=== PATIENT | male | born 1945 | race African-American/Black ===

== ENCOUNTER 2021-01-20 11:41 | Emergency (ER) | payer OTHER, MEDICAID ==
[~2021-01-20] VITALS: Ht 188 cm; Wt 108.9 kg
[2021-01-20 11:42] VITALS: BP 162/90
--- NOTE | 2021-01-20 12:11 | NUR ---
HARSHAA FROM [facility] WITH C/O CHEST PAIN RIGHT RIGHT SIDE OF CHEST THAT STARTED THIS MORNING WHEN GETTING DRESSED TRYING TO PUT HIS ARM THROUGH HIS SHIRT, PT STATES PAIN RADIATES TO BACK UNDER RIGHT SHOULDER, WORSE WITH DEEP INHALATION HX HTN, DM, [id number]
[2021-01-20] MEDS ORDERED: LIDOCAINE MPF 1% 10 MG/ML VIAL INJ ONE (12:25)
[2021-01-20 12:54] LABS: BASOPHILS % (AUTO) 0.4 % (0.0-2.0); EOSINOPHILS # (AUTO) 0.2 K/uL (0-0.4); EOSINOPHILS % (AUTO) 1.6 % (0.0-4.0); HEMATOCRIT 36.4 % (36-52); HEMOGLOBIN 11.6 g/dL (12.0-18.0); LYMPHOCYTES # (AUTO) 3.5 K/uL (2.0-11.5); MEAN CORPUSCULAR HEMOGLOBIN 29 pg (27-31); MEAN CORPUSCULAR HGB CONC 32 g/dL (33-37); MEAN CORPUSCULAR VOLUME 91.8 fL (80-94); MONOCYTES # (AUTO) 0.6 K/uL (0.8-1.0); MONOCYTES % (AUTO) 5.3 % (1.7-9.3); NEUTROPHILS # (AUTO) 6.6 K/uL (1.8-7.7); NEUTROPHILS % (AUTO) 60.7 % (42.2-75.2); PLATELET COUNT (AUTO) 167 K/uL (140-450); RED BLOOD CELL COUNT(AUTO) 3.97 MIL/uL (4.20-6.10); RED CELL DISTRIBUTION WIDTH 14.2 % (11.6-13.7); WHITE BLOOD COUNT (AUTO) 10.9 K/uL (4.8-10.8)
--- NOTE | 2021-01-20 13:00 | NUR ---
PATIENT RESTING BED, VSS, STATES PAIN HAS SUBSIDED AT THIS TIME
[2021-01-20 13:07] LABS: ALBUMIN 3.7 g/dL (3.4-5.0); ASPARTATE AMINOTRANSFERASE 26 U/L (15-37); CARBON DIOXIDE 30.8 mmol/L (21-32); CHLORIDE 102 mmol/L (98-107); CREATININE 1.5 mg/dL (0.6-1.3); GLUCOSE 196 mg/dL (74-106); POTASSIUM 3.8 mmol/L (3.5-5.1); SODIUM SERUM 138 mmol/L (136-145); TOTAL BILIRUBIN 0.5 mg/dL (0.0-1.0); UREA NITROGEN, BLOOD 24 mg/dL (7-18)
[2021-01-20] MEDS ORDERED: NAPR-1703 PO (13:40)
[2021-01-20 14:29] VITALS: BP 159/81
== END 2021-01-20 11:42 | disposition home or self-care (01) ==
LOC: MED 11:41
DX: M62.830 Muscle spasm of back (principal); R07.89 Other chest pain; I10 Essential (primary) hypertension; E11.9 Type 2 diabetes mellitus without complications; E78.5 Hyperlipidemia, unspecified; N28.9 Disorder of kidney and ureter, unspecified; E07.9 Disorder of thyroid, unspecified; Z90.49 Acquired absence of other specified parts of digestive tract; Z98.890 Other specified postprocedural states
CPT/HCPCS: 36415; 71045; 80053; 84484; 85025; 93005; 99285; J2001

== ENCOUNTER 2021-03-14 12:02 | Emergency (ER) | payer OTHER, MEDICAID ==
[~2021-03-14] VITALS: Ht 185.4 cm; Wt 108.9 kg
[~2021-03-14 12:02] MED LIST: NAPR-1703 PO
--- NOTE | 2021-03-14 12:02 | NUR ---
Patient MADELINE SIMPSON from [facility], transferred to bed 3. RN evaluating the patient at bedside.
--- NOTE | 2021-03-14 12:05 | NUR ---
75 y.o HARSHAA from [facility] c.o SOB. BLS. Q3days of SOB with cough. VSS. Pt awakens at night due to difficulty breathing, bilateral crackles but mostly prominent in the left side, productive cough. pt c.o C/P /10 pain that feels like pressure. PMH: hypertension, diabetes, gout Allergies: NKA
[2021-03-14 12:10] VITALS: BP 169/68
--- NOTE | 2021-03-14 12:23 | NUR ---
ERMD at bedside for examination
--- NOTE | 2021-03-14 12:32 | NUR ---
RN at bedside for EKG
--- NOTE | 2021-03-14 12:34 | NUR ---
RT at bedside for nebulizer treatment
--- NOTE | 2021-03-14 12:36 | NUR ---
Lab at bedside
[2021-03-14] MEDS: ALBUTEROL SULFATE/IPRATROPIU 3 ML SOL IH ONE (12:37)
[2021-03-14 12:50] LABS: BASOPHILS % (AUTO) 0.2 % (0.0-2.0); EOSINOPHILS # (AUTO) 0.1 K/uL (0-0.4); HEMATOCRIT 36.7 % (36-52); HEMOGLOBIN 11.8 g/dL (12.0-18.0); LYMPHOCYTES # (AUTO) 2.1 K/uL (2.0-11.5); LYMPHOCYTES % (AUTO) 18.5 % (20.5-51.1); MEAN CORPUSCULAR HEMOGLOBIN 29 pg (27-31); MEAN CORPUSCULAR HGB CONC 32 g/dL (33-37); MEAN CORPUSCULAR VOLUME 91.4 fL (80-94); MONOCYTES # (AUTO) 0.6 K/uL (0.8-1.0); MONOCYTES % (AUTO) 5.4 % (1.7-9.3); NEUTROPHILS # (AUTO) 8.7 K/uL (1.8-7.7); NEUTROPHILS % (AUTO) 74.9 % (42.2-75.2); PLATELET COUNT (AUTO) 193 K/uL (140-450); RED BLOOD CELL COUNT(AUTO) 4.02 MIL/uL (4.20-6.10); RED CELL DISTRIBUTION WIDTH 13.6 % (11.6-13.7); WHITE BLOOD COUNT (AUTO) 11.6 K/uL (4.8-10.8)
--- NOTE | 2021-03-14 12:52 | NUR ---
Xray at bedside
[2021-03-14 13:05] LABS: ALBUMIN 3.7 g/dL (3.4-5.0); ANION GAP 9.9 (8-16); ASPARTATE AMINOTRANSFERASE 29 U/L (15-37); CARBON DIOXIDE 31.9 mmol/L (21-32); CHLORIDE 100 mmol/L (98-107); CREATININE 1.6 mg/dL (0.6-1.3); GLUCOSE 159 mg/dL (74-106); POTASSIUM 3.8 mmol/L (3.5-5.1); SODIUM SERUM 138 mmol/L (136-145); TOTAL BILIRUBIN 0.7 mg/dL (0.0-1.0); UREA NITROGEN, BLOOD 24 mg/dL (7-18)
--- NOTE | 2021-03-14 13:22 | NUR ---
Patient appears to be resting comfortably in bed semi fowlers. Vital Signs within normal limits. Respirations even and unlabored. patient has no pain. no acute distress at this moment
[2021-03-14] MEDS ORDERED: ALBU0.0912 IH (13:32)
[2021-03-14] MEDS ORDERED: AZIT250T4 PO (13:32)
[2021-03-14] MEDS ORDERED: PRED20TA5 PO (13:32)
[2021-03-14] MEDS: predniSONE 20 MG TAB PO ONE (13:41)
[2021-03-14 13:54] VITALS: BP 167/69
--- NOTE | 2021-03-14 13:55 | NUR ---
Patient discharged with v/s stable. Written and verbal after care instructions given and explained. Patient alert, oriented and verbalized understanding of instructions. Ambulatory with steady gait. All questions addressed prior to discharge. ID band removed. Patient advised to follow up with PMD. Rx of albuterol sulfate, zithromax z pack, and deltasone given. Patient educated on indication of medication including possible reaction and side effects. Opportunity to ask questions provided and answered.
== END 2021-03-14 13:55 ==
LOC: MED 12:02
DX: J20.9 Acute bronchitis, unspecified (principal); E11.9 Type 2 diabetes mellitus without complications; I10 Essential (primary) hypertension; E07.9 Disorder of thyroid, unspecified; Z79.899 Other long term (current) drug therapy
CPT/HCPCS: 36415; 71045; 80053; 83690; 84484; 85025; 93005; 94640; 99285; J7512

== ENCOUNTER 2022-06-02 05:33 | Inpatient (IN) | payer OTHER, MEDICAID ==
[~2022-06-02] VITALS: Ht 185.4 cm; Wt 106.6 kg
[~2022-06-02 05:33] MED LIST changes: +ALBU0.0912 IH; +AZIT250T4 PO; +PRED20TA5 PO
--- NOTE | 2022-06-02 05:35 | NUR ---
MADELINE FROM [facility] WITH C/O GENERALIZED WEAKNESS. IS AWAKE AND ALERT, ORIENTED X 4.
--- NOTE | 2022-06-02 05:35 | NUR ---
PT MADELINE BLS. TAKEN TO BED 3
[2022-06-02 05:38] VITALS: BP 120/66
[2022-06-02] MEDS ORDERED: NACL 0.9% 1,000 ML IV ONE ×2 (06:10→07:45)
[2022-06-02 07:06] LABS: BASOPHILS % (AUTO) 0.4 % (0.0-2.0); EOSINOPHILS # (AUTO) 0.1 K/uL (0-0.4); HEMOGLOBIN 10.6 g/dL (12.0-18.0); LYMPHOCYTES # (AUTO) 3.6 K/uL (2.0-11.5); LYMPHOCYTES % (AUTO) 29.5 % (20.5-51.1); MEAN CORPUSCULAR HEMOGLOBIN 28 pg (27-31); MEAN CORPUSCULAR HGB CONC 32 g/dL (33-37); MEAN CORPUSCULAR VOLUME 88.9 fL (80-94); MONOCYTES # (AUTO) 0.5 K/uL (0.8-1.0); MONOCYTES % (AUTO) 4.4 % (1.7-9.3); NEUTROPHILS # (AUTO) 7.8 K/uL (1.8-7.7); NEUTROPHILS % (AUTO) 64.7 % (42.2-75.2); PLATELET COUNT (AUTO) 188 K/uL (140-450); RED BLOOD CELL COUNT(AUTO) 3.72 MIL/uL (4.20-6.10); RED CELL DISTRIBUTION WIDTH 13.8 % (11.6-13.7)
[2022-06-02 07:20] LABS: ALBUMIN 3.8 g/dL (3.4-5.0); ANION GAP 15.1 (8-16); ASPARTATE AMINOTRANSFERASE 26 U/L (15-37); CARBON DIOXIDE 23.8 mmol/L (21-32); CHLORIDE 98 mmol/L (98-107); CREATININE 4.2 mg/dL (0.6-1.3); GLUCOSE 115 mg/dL (74-106); POTASSIUM 4.9 mmol/L (3.5-5.1); SODIUM SERUM 132 mmol/L (136-145); TOTAL BILIRUBIN 0.6 mg/dL (0.0-1.0); UREA NITROGEN, BLOOD 91 mg/dL (7-18)
--- NOTE | 2022-06-02 07:20 | NUR ---
REPORT RECEIVED FROM MAUREEN ADAIR, TRANSFER OF CARE AT THIS TIME, RECEIVED PT AWAKE IN BED, ON BUSINESS INTELLIGENCE DEVELOPER, CONTINUES C/O OF GEN WEAK
--- NOTE | 2022-06-02 07:30 | NUR ---
PT HANDED URINAL
--- NOTE | 2022-06-02 07:32 | NUR ---
SWABS HANDED TO KELECHI DE JESUSGLASS ETCHER HELPER
--- NOTE | 2022-06-02 07:39 | NUR ---
DR ANN AT BEDSIDE FOR EVAL
[2022-06-02] MEDS ORDERED: OSELTAMIVIR PHOSPHATE 75 MG CAP PO ONE (08:35)
[2022-06-02] MEDS ORDERED: ALLO100T21 PO (08:47)
[2022-06-02] MEDS ORDERED: ASPI-1749 PO (08:48)
[2022-06-02] MEDS ORDERED: MEMA5TAB PO (08:48)
[2022-06-02] MEDS ORDERED: DOCU-2 PO (08:48)
[2022-06-02] MEDS ORDERED: INSU100S22 SUBQ (08:48)
[2022-06-02] MEDS ORDERED: GABA300C PO (08:48)
[2022-06-02] MEDS ORDERED: NITR0.4T2 SL (08:48)
[2022-06-02] MEDS ORDERED: SITA100T8 PO (08:48)
[2022-06-02] MEDS ORDERED: LANTUS SUBQ (08:48)
[2022-06-02] MEDS ORDERED: BENA1TAB PO (08:48)
[2022-06-02] MEDS ORDERED: SYN.05 PO (08:48)
[2022-06-02] MEDS ORDERED: SIMV40TA1 PO (08:51)
[2022-06-02] MEDS ORDERED: INSU100S45 SUBQ (08:51)
[2022-06-02] MEDS ORDERED: CHOL400C2 PO (08:51)
[2022-06-02] MEDS ORDERED: OMEP20EC11 PO (08:51)
--- NOTE | 2022-06-02 09:12 | NUR ---
unable to give urine sample at this time.
--- NOTE | 2022-06-02 09:13 | NUR ---
Patient will be admitted to care of [facility]. Admited to Telemetry. Will go to room 118A. Belongings list completed. Report to Navi.
[2022-06-02] MEDS ORDERED: ACETAMINOPHEN 325 MG TAB PO PRN (09:25)
[2022-06-02] MEDS: NACL 0.9% 1,000 ML IV SCH (09:25)
[2022-06-02] MEDS ORDERED: POTASSIUM CHLORIDE 10 MEQ TABER PO PRN (09:25)
[2022-06-02] MEDS ORDERED: DOCUSATE SODIUM 100 MG GELCAP PO PRN (09:25)
[2022-06-02] MEDS ORDERED: SODIUM PHOS / POTASSIUM PHOS 1 PKT PDR PO PRN (09:25)
[2022-06-02] MEDS ORDERED: HYDROcodone/APAP 5/325 MG 1 TAB TAB PO PRN (09:25)
[2022-06-02] MEDS ORDERED: ONDANSETRON 4 MG/2 ML VIAL IM/IVP PRN (09:25)
[2022-06-02] MEDS ORDERED: MORPHINE SULFATE 2 MG/ML SYR IVP PRN (09:25)
[2022-06-02] MEDS ORDERED: DEXTROSE 50% 50 ML SYR IVP PRN (09:25)
[2022-06-02 10:15] LABS: MAGNESIUM 1.6 mg/dL (1.8-2.4); PHOSPHORUS 5.6 mg/dL (2.5-4.9)
[2022-06-02 11:38] VITALS: BP 111/48
[2022-06-02] MEDS: BLOOD GLUCOSE MONITORING 1 DEV DEV FS SCH ×3 (12:07→21:20)
[2022-06-02] MEDS: MAGNESIUM OXIDE 400 MG TAB PO PRN (13:55)
[2022-06-02 14:17] LABS: APPEARANCE,URINE CLEAR (CLEAR); BILIRUBIN,URINE NEGATIVE (NEGATIVE); BLOOD, URINE NEGATIVE (NEGATIVE); COLOR,URINE YELLOW (YELLOW); LEUKOCYTE ESTERASE ,URINE NEGATIVE (NEGATIVE); NITRITE, URINE NEGATIVE (NEGATIVE); UGLUCOSE NEGATIVE (NEGATIVE)
--- NOTE | 2022-06-02 15:21 | NUR ---
PATIENT HAS BEEN SCREENED AND CATEGORIZED LOW NUTRITION RISK. PATIENT WILL BE SEEN WITHIN 7 DAYS OF ADMISSION. 06/08/[address] Addendum: 06/07/22 at [address] CORRECTION PATIENT HAS BEEN SCREENED AND CATEGORIZED MODERATE NUTRITION RISK. PATIENT WILL BE SEEN WITHIN 3-5 DAYS OF ADMISSION. CAM [address]
[2022-06-02 16:00] VITALS: BP 23/57
[2022-06-02] MEDS: INSULIN LISPRO SLIDING SCALE 100 UNITS/ML VIAL SUBQ PRN ×2 (16:48→21:32)
--- NOTE | 2022-06-02 18:14 | NUR ---
GOT ORDER TO GET BLADDER SCAN. THE SCAN SHOWED 485 URINE , WHEN ABOUT TO INSERT HERRERA CATHETER, PT REFUSED AND URINATED 400 CC IN URINAL, CALLED THE DR AND REPORTED, AND GOT ORDER TO SCAN HIM [id number]. [id number]
[2022-06-02 20:00] VITALS: BP 112/56
[2022-06-02] MEDS: allopurinoL 100 MG TAB PO SCH (21:21)
[2022-06-02] MEDS: GABAPENTIN 300 MG CAP PO SCH (21:21)
[2022-06-03] VITALS: BP 100/48
[2022-06-03 04:00] VITALS: BP 126/62
[2022-06-03] MEDS: LEVOTHYROXINE 0.05 MG TAB PO SCH (06:04)
[2022-06-03] MEDS: INSULIN LISPRO SLIDING SCALE 100 UNITS/ML VIAL SUBQ PRN ×4 (06:52→20:17)
[2022-06-03] MEDS: BLOOD GLUCOSE MONITORING 1 DEV DEV FS SCH ×4 (06:57→20:13)
--- NOTE | 2022-06-03 07:30 | NUR ---
RECEIVED REPORT FROM DIRECTOR EXPERIMENTAL MEDICINE RN. PT RESTING IN BED, NO C/O PAIN, NO SOB, WITH INTERMITTENT DRY COUGH
[2022-06-03 07:36] LABS: BASOPHILS % (AUTO) 0.3 % (0.0-2.0); EOSINOPHILS # (AUTO) 0.2 K/uL (0-0.4); EOSINOPHILS % (AUTO) 2.1 % (0.0-4.0); HEMATOCRIT 30.8 % (36-52); HEMOGLOBIN 10.1 g/dL (12.0-18.0); LYMPHOCYTES # (AUTO) 3.1 K/uL (2.0-11.5); LYMPHOCYTES % (AUTO) 33.5 % (20.5-51.1); MEAN CORPUSCULAR HEMOGLOBIN 29 pg (27-31); MEAN CORPUSCULAR HGB CONC 33 g/dL (33-37); MEAN CORPUSCULAR VOLUME 88.8 fL (80-94); MONOCYTES # (AUTO) 0.5 K/uL (0.8-1.0); MONOCYTES % (AUTO) 4.9 % (1.7-9.3); NEUTROPHILS # (AUTO) 5.5 K/uL (1.8-7.7); NEUTROPHILS % (AUTO) 59.2 % (42.2-75.2); PLATELET COUNT (AUTO) 166 K/uL (140-450); RED BLOOD CELL COUNT(AUTO) 3.47 MIL/uL (4.20-6.10); RED CELL DISTRIBUTION WIDTH 13.6 % (11.6-13.7); WHITE BLOOD COUNT (AUTO) 9.4 K/uL (4.8-10.8)
[2022-06-03 08:00] VITALS: BP 119/72
[2022-06-03 08:32] LABS: CHLORIDE 102 mmol/L (98-107); CREATININE 2.4 mg/dL (0.6-1.3); GLUCOSE 193 mg/dL (74-106); SODIUM SERUM 135 mmol/L (136-145)
[2022-06-03] MEDS: PANTOPRAZOLE 40 MG TABEC PO SCH (09:00)
[2022-06-03] MEDS: ASPIRIN 81 MG TAB.CHEW PO SCH (09:00)
[2022-06-03] MEDS: allopurinoL 100 MG TAB PO SCH ×2 (09:00→20:09)
[2022-06-03] MEDS: OSELTAMIVIR PHOSPHATE 30 MG CAP PO SCH (09:00)
[2022-06-03] MEDS: GABAPENTIN 300 MG CAP PO SCH ×2 (09:00→20:09)
[2022-06-03] MEDS: MEMANTINE 10 MG TAB PO SCH (09:00)
[2022-06-03 09:13] LABS: UREA NITROGEN, BLOOD 69 mg/dL (7-18)
--- NOTE | 2022-06-03 09:30 | NUR ---
DUE MEDS GIVEN
[2022-06-03 09:40] LABS: CHOL/HDL RATIO 3.3 (1-4.5)
[2022-06-03] MEDS ORDERED: MAG SULF 2000 MG/WATER PREMIX 50 ML IV SCH (10:00)
[2022-06-03] MEDS: NACL 0.9% 1,000 ML IV SCH (10:07)
[2022-06-03 12:00] VITALS: BP 123/65
[2022-06-03] MEDS: DOCUSATE SODIUM 100 MG GELCAP PO SCH ×2 (12:50→20:09)
--- NOTE | 2022-06-03 13:00 | NUR ---
PT RESTING IN BED, NO APPARENT DISTRESS
[2022-06-03 16:00] VITALS: BP 140/70
--- NOTE | 2022-06-03 19:15 | NUR ---
REPORT GIVEN BY AM RN. PATIENT IS AWAKE, ALERT AND ORIENTED X 4 [address]ING TV AT THIS TIME. DENIES PAIN AT THIS TIME. NO ACUTE RESPIRATORY DISTRESS NOTED. IVF OF NS AT 40 ML/HR INFUSING WELL ORDERED. SKIN WARM AND DRY TO TOUCH. BED IN THE LOWEST AND LOCKED POSITION FOR SAFETY, CALL LIGHT WITHIN REACH,.
[2022-06-03 20:00] VITALS: BP 123/64
--- NOTE | 2022-06-03 20:36 | NUR ---
BS-211 MG/DL, INSULIN GIVEN PER SLIDING SCALE COVERAGE ORDERED. HS SNACKS PROVIDED.
--- NOTE | 2022-06-03 23:45 | NUR ---
PER PATIENT HE HAD A SMALL FORMED STOOL.
[2022-06-04] VITALS: BP 121/60
--- NOTE | 2022-06-04 01:19 | NUR ---
PATIENT ASLEEP AT THIS TIME. BREATHING EVEN AND UNLABORED. CALL LIGHT WITHIN REACH,
[2022-06-04 04:00] VITALS: BP 120/70
[2022-06-04] MEDS: LEVOTHYROXINE 0.05 MG TAB PO SCH (05:43)
[2022-06-04] MEDS: BLOOD GLUCOSE MONITORING 1 DEV DEV FS SCH ×4 (06:30→20:23)
[2022-06-04] MEDS: INSULIN LISPRO SLIDING SCALE 100 UNITS/ML VIAL SUBQ PRN ×4 (06:31→20:35)
--- NOTE | 2022-06-04 07:30 | NUR ---
RECEIVED BEDSIDE REPORT FROM COVERING MACHINE TENDER NURSE, PT AWAKE ALERT ABLE TO LET NEEDS KNOWN. IV TO LEFT FA 20G, PATENT INTACT, INFUSING WELL, PT ON ROOM AIR, NO SOB NOTED, INITIAL ASSESSMENT DONE, ALL SAFETY PRECAUTION MET, CALL LIGHT WITHIN REACH, WILL CONTINUE TO MONITOR.
[2022-06-04 07:32] LABS: BASOPHILS % (AUTO) 0.3 % (0.0-2.0); EOSINOPHILS # (AUTO) 0.2 K/uL (0-0.4); EOSINOPHILS % (AUTO) 2.2 % (0.0-4.0); HEMATOCRIT 31.5 % (36-52); HEMOGLOBIN 10.3 g/dL (12.0-18.0); LYMPHOCYTES # (AUTO) 3.2 K/uL (2.0-11.5); LYMPHOCYTES % (AUTO) 35.5 % (20.5-51.1); MEAN CORPUSCULAR HEMOGLOBIN 29 pg (27-31); MEAN CORPUSCULAR HGB CONC 33 g/dL (33-37); MEAN CORPUSCULAR VOLUME 89.1 fL (80-94); MONOCYTES # (AUTO) 0.4 K/uL (0.8-1.0); MONOCYTES % (AUTO) 4.9 % (1.7-9.3); NEUTROPHILS # (AUTO) 5.2 K/uL (1.8-7.7); NEUTROPHILS % (AUTO) 57.1 % (42.2-75.2); PLATELET COUNT (AUTO) 165 K/uL (140-450); RED BLOOD CELL COUNT(AUTO) 3.54 MIL/uL (4.20-6.10); RED CELL DISTRIBUTION WIDTH 13.8 % (11.6-13.7); WHITE BLOOD COUNT (AUTO) 9.1 K/uL (4.8-10.8)
[2022-06-04 08:00] VITALS: BP 117/71
[2022-06-04] MEDS: ASPIRIN 81 MG TAB.CHEW PO SCH (09:02)
[2022-06-04] MEDS: GABAPENTIN 300 MG CAP PO SCH ×2 (09:02→20:31)
[2022-06-04] MEDS: PANTOPRAZOLE 40 MG TABEC PO SCH (09:02)
[2022-06-04] MEDS: MEMANTINE 10 MG TAB PO SCH (09:03)
[2022-06-04] MEDS: allopurinoL 100 MG TAB PO SCH ×2 (09:03→20:31)
[2022-06-04] MEDS: OSELTAMIVIR PHOSPHATE 30 MG CAP PO SCH (09:03)
[2022-06-04] MEDS: DOCUSATE SODIUM 100 MG GELCAP PO SCH ×2 (09:03→20:35)
[2022-06-04] MEDS: NACL 0.9% 1,000 ML IV SCH (09:25)
[2022-06-04] MEDS: NACL 0.9% 2,000 ML IV SCH (11:18)
[2022-06-04 15:03] LABS: CARBON DIOXIDE 25.2 mmol/L (21-32); CHLORIDE 102 mmol/L (98-107); CREATININE 1.9 mg/dL (0.6-1.3); GLUCOSE 187 mg/dL (74-106); POTASSIUM 5.2 mmol/L (3.5-5.1); SODIUM SERUM 136 mmol/L (136-145); UREA NITROGEN, BLOOD 52 mg/dL (7-18)
[2022-06-04 16:00] VITALS: BP 129/66
[2022-06-04 18:47] LABS: APPEARANCE,URINE CLEAR (CLEAR); BILIRUBIN,URINE NEGATIVE (NEGATIVE); BLOOD, URINE NEGATIVE (NEGATIVE); COLOR,URINE YELLOW (YELLOW); LEUKOCYTE ESTERASE ,URINE NEGATIVE (NEGATIVE); NITRITE, URINE NEGATIVE (NEGATIVE); UGLUCOSE TRACE (NEGATIVE)
[2022-06-04 18:54] LABS: RBC,URINE NONE SEEN /HPF (0-5); WBC,URINE NONE SEEN /HPF (0-5)
--- NOTE | 2022-06-04 19:30 | NUR ---
ENDORSED PT TO CARTON FORMING MACHINE OPERATOR NURSE FOR CONTINUOUS FO CARE
--- NOTE | 2022-06-04 19:35 | NUR ---
Received report from morning shift nurse. Patient resting on bed. Breathing even and unlabored, on room air. Patient is alert and oriented, independent and ambulatory. Bed locked at lowest with call light within reach. Advised patient to call for further needs.
[2022-06-04 20:00] VITALS: BP 122/64
[2022-06-04 20:59] LABS: TOTAL PROTEIN URINE 7.7 MG/DL
[2022-06-05] VITALS: BP 110/55
--- NOTE | 2022-06-05 | NUR ---
Patient resting on bed, awake and alert. No complaints of pain. Water refilled and placed at bedside. Advised to call for further needs.
[2022-06-05] MEDS: LEVOTHYROXINE 0.05 MG TAB PO SCH (05:54)
[2022-06-05] MEDS: NACL 0.9% 2,000 ML IV SCH (06:36)
[2022-06-05] MEDS: INSULIN LISPRO SLIDING SCALE 100 UNITS/ML VIAL SUBQ PRN ×4 (06:37→20:41)
[2022-06-05] MEDS: BLOOD GLUCOSE MONITORING 1 DEV DEV FS SCH ×4 (06:37→20:42)
--- NOTE | 2022-06-05 07:18 | NUR ---
Report given to morning shift nurseSherron. Patient awake and resting on bed , stable with no complaints of pain.
--- NOTE | 2022-06-05 07:20 | NUR ---
RECEIVED REPORT FROM BREAST WORKER NURSE FOR CONTINUITY OF CARE. PT IS AWAKE IN BED. A&O4, ABLE TO COMMUNICATE NEEDS. RESPIRATIONS EVEN AND UNLABORED ON RA. SKIN IS INTACT, WARM AND DRY TO TOUCH. IV SITE AT RFA G22, INFUSING NS AT 70ML/HR. DROPLET PRECAUTIONS IN PLACE FOR INFLUENZA. CALL LIGHT WITHIN REACH. SAFETY PRECAUTIONS IN PLACE. WILL CONTINUE TO MONITOR.
[2022-06-05 07:23] LABS: BASOPHILS % (AUTO) 0.3 % (0.0-2.0); EOSINOPHILS # (AUTO) 0.2 K/uL (0-0.4); EOSINOPHILS % (AUTO) 2.2 % (0.0-4.0); HEMOGLOBIN 9.9 g/dL (12.0-18.0); LYMPHOCYTES # (AUTO) 2.8 K/uL (2.0-11.5); LYMPHOCYTES % (AUTO) 31.8 % (20.5-51.1); MEAN CORPUSCULAR HEMOGLOBIN 30 pg (27-31); MEAN CORPUSCULAR HGB CONC 33 g/dL (33-37); MEAN CORPUSCULAR VOLUME 89.1 fL (80-94); MONOCYTES # (AUTO) 0.5 K/uL (0.8-1.0); MONOCYTES % (AUTO) 5.4 % (1.7-9.3); NEUTROPHILS # (AUTO) 5.4 K/uL (1.8-7.7); NEUTROPHILS % (AUTO) 60.3 % (42.2-75.2); PLATELET COUNT (AUTO) 162 K/uL (140-450); RED BLOOD CELL COUNT(AUTO) 3.36 MIL/uL (4.20-6.10); RED CELL DISTRIBUTION WIDTH 13.6 % (11.6-13.7); WHITE BLOOD COUNT (AUTO) 8.9 K/uL (4.8-10.8)
[2022-06-05 07:46] LABS: ANION GAP 14.9 (8-16); CARBON DIOXIDE 22.7 mmol/L (21-32); CHLORIDE 102 mmol/L (98-107); CREATININE 1.8 mg/dL (0.6-1.3); GLUCOSE 194 mg/dL (74-106); POTASSIUM 4.6 mmol/L (3.5-5.1); SODIUM SERUM 135 mmol/L (136-145); UREA NITROGEN, BLOOD 40 mg/dL (7-18)
[2022-06-05 08:00] VITALS: BP 144/80
--- NOTE | 2022-06-05 08:00 | NUR ---
Patient's Plan of Care was discussed and reviewed with ENVIRONMENTAL INSPECTOR: KATERINA ROBERTO
[2022-06-05] MEDS: GABAPENTIN 300 MG CAP PO SCH ×2 (09:37→20:35)
[2022-06-05] MEDS: allopurinoL 100 MG TAB PO SCH ×2 (09:38→20:35)
[2022-06-05] MEDS: MEMANTINE 10 MG TAB PO SCH (09:38)
[2022-06-05] MEDS: DOCUSATE SODIUM 100 MG GELCAP PO SCH ×2 (09:38→20:35)
[2022-06-05] MEDS: ASPIRIN 81 MG TAB.CHEW PO SCH (09:38)
[2022-06-05] MEDS: PANTOPRAZOLE 40 MG TABEC PO SCH (09:38)
[2022-06-05] MEDS: OSELTAMIVIR PHOSPHATE 30 MG CAP PO SCH (09:39)
--- NOTE | 2022-06-05 09:47 | NUR ---
ADMINISTERED SCHEDULED MORNING MEDS. PT TEACHING ABOUT MEDS GIVEN. PT VERBALIZED UNDERSTANDING. CALL LIGHT WITHIN REACH. SAFETY PRECAUTIONS IN PLACE. WILL CONTINUE TO MONITOR.
--- NOTE | 2022-06-05 11:15 | NUR ---
BLOOD GLUCOSE CHECK DONE. BS 329. SLIDING SCALE INSULIN ADMINISTERED.
[2022-06-05] MEDS: MAGNESIUM OXIDE 400 MG TAB PO PRN (13:51)
--- NOTE | 2022-06-05 13:57 | NUR ---
MG OX ADMINISTERED FOR MG 1.5.
[2022-06-05 16:00] VITALS: BP 126/74
--- NOTE | 2022-06-05 16:18 | NUR ---
BLOOD GLUCOSE CHECK DONE. BS 336. SLIDING SCALE INSULIN ADMINISTERED.
--- NOTE | 2022-06-05 19:25 | NUR ---
ENDORSED PT TO COW TRIMMER NURSE FOR CONTINUITY OF CARE. ALL NEEDS MET THROUGHOUT SHIFT. PT IS STABLE.
--- NOTE | 2022-06-05 19:30 | NUR ---
RECEIVED PT FROM AM NURSE FOR CONTINUITY OF CARE. PATIENT IS STABLE
[2022-06-05 20:00] VITALS: BP 144/65
[2022-06-05] MEDS: INSULIN LANTUS 100 UNITS/ML 10 ML VIAL SUBQ SCH (20:42)
--- NOTE | 2022-06-05 21:30 | NUR ---
AL SCHEDULED MEDICATIONS GIVEN,NO ADVERSE REACTIONS NOTED
--- NOTE | 2022-06-05 22:21 | NUR ---
06/05/2022 RD INITIAL ASSESSMENT COMPLETED PLEASE REFER TO NUTRITION ASSESSMENT UNDER CARE ACTIVITY FOR ESTIMATED NUTRITIONAL NEEDS. 1.CONTINUE WITH [facility] 60 GM DIET 2.MONITOR BLOOD GLUCOSE 3.RD TO FOLLOW-UP IN 3-5 DAYS PATIENT IS MODERATE RISK. LATA CARBONE, RD
--- NOTE | 2022-06-06 01:00 | NUR ---
PATIENT ASLEEP, RESPIRATIONS EVEN AND UNLABORED,NO DISTRESS NOTED
--- NOTE | 2022-06-06 03:00 | NUR ---
PATIENT ASLEEP,NO S/SX OF DISTRESS NOTED
--- NOTE | 2022-06-06 06:00 | NUR ---
PATIENT IS AWAKE,NO EPISODE OF LOOSE WATERY STOOL AT THIS TIME
[2022-06-06] MEDS: LEVOTHYROXINE 0.05 MG TAB PO SCH (06:23)
[2022-06-06] MEDS: BLOOD GLUCOSE MONITORING 1 DEV DEV FS SCH ×4 (07:07→20:54)
[2022-06-06 07:14] LABS: BASOPHILS % (AUTO) 0.3 % (0.0-2.0); EOSINOPHILS # (AUTO) 0.2 K/uL (0-0.4); EOSINOPHILS % (AUTO) 2.1 % (0.0-4.0); HEMATOCRIT 30.9 % (36-52); LYMPHOCYTES # (AUTO) 3.3 K/uL (2.0-11.5); LYMPHOCYTES % (AUTO) 33.4 % (20.5-51.1); MEAN CORPUSCULAR HEMOGLOBIN 29 pg (27-31); MEAN CORPUSCULAR HGB CONC 33 g/dL (33-37); MEAN CORPUSCULAR VOLUME 89.5 fL (80-94); MONOCYTES # (AUTO) 0.5 K/uL (0.8-1.0); MONOCYTES % (AUTO) 5.4 % (1.7-9.3); NEUTROPHILS # (AUTO) 5.8 K/uL (1.8-7.7); NEUTROPHILS % (AUTO) 58.8 % (42.2-75.2); PLATELET COUNT (AUTO) 162 K/uL (140-450); RED BLOOD CELL COUNT(AUTO) 3.46 MIL/uL (4.20-6.10); RED CELL DISTRIBUTION WIDTH 14.1 % (11.6-13.7); WHITE BLOOD COUNT (AUTO) 9.9 K/uL (4.8-10.8)
[2022-06-06 07:21] LABS: CARBON DIOXIDE 25.9 mmol/L (21-32); CHLORIDE 103 mmol/L (98-107); CREATININE 1.7 mg/dL (0.6-1.3); GLUCOSE 190 mg/dL (74-106); POTASSIUM 4.9 mmol/L (3.5-5.1); SODIUM SERUM 136 mmol/L (136-145); UREA NITROGEN, BLOOD 33 mg/dL (7-18)
[2022-06-06 07:23] LABS: PROTHROMBIN TIME 9.9 secs (10.8-13.4)
[2022-06-06 08:00] VITALS: BP 146/68
--- NOTE | 2022-06-06 08:05 | NUR ---
RECEIVED REPORT FROM NIGHTSHIFT NURSE LATA FOR CONTINUITY OF CARE. PT IN STABLE CONDITION, A/OX4, SOMEWHAT FORGETFUL. CURRENTLY SLEEPING, BUT EASILY AROUSED. PT IS BREATHING EVEN, REGULAR AND UNLABORED ON ROOM AIR. PT IS CONTINENT OF THE BOWEL AND BLADDER, AMBULATORY WITH CANE. PT DENIES PAIN AT THIS TIME, DROPLET PRECAUTIONS STILL IN EFFECT.
[2022-06-06] MEDS: ASPIRIN 81 MG TAB.CHEW PO SCH (08:44)
[2022-06-06] MEDS: DOCUSATE SODIUM 100 MG GELCAP PO SCH ×2 (09:29→20:38)
[2022-06-06] MEDS: MEMANTINE 10 MG TAB PO SCH (09:30)
[2022-06-06] MEDS: allopurinoL 100 MG TAB PO SCH ×2 (09:30→20:38)
[2022-06-06] MEDS: OSELTAMIVIR PHOSPHATE 30 MG CAP PO SCH (09:30)
[2022-06-06] MEDS: GABAPENTIN 300 MG CAP PO SCH ×2 (09:30→20:38)
[2022-06-06] MEDS: PANTOPRAZOLE 40 MG TABEC PO SCH (09:31)
[2022-06-06] MEDS: NACL 0.9% 2,000 ML IV SCH (10:30)
--- NOTE | 2022-06-06 13:35 | NUR ---
DC PLANNING: THE PATIENT PRESENTED FROM [facility] WITH C/O WEAKNESS AND DIARRHEA. H/O HTN, DM AND HYPOTHYROID DX. PATIENT REPORTS ANURIA X ONE DAY, CR. 4.2, NA= 132. CONSULTS WITH NEPHROLOGY ORDERED, LIVER MASS NOTED ON RENAL US. ORDERED RECEIVED FOR CM TO ARRANGE RENAL BX, CLINICALS AND ORDERS FAXED TO [facility]. CM SPOKE WITH PASTOR GALLARDO AT [facility] ([phone]), HER NURSING TEACHER WILL REVIEW THE CLINICALS. SAMI ASKED IF THE PROCEDURE WAS URGENT, PHONE NUMBER FOR THE ATTENDING MD GIVEN SO AN MD TO MD CALL CAN DETERMINE THIS. CM WILL FOLLOW. Addendum: 06/06/22 at 1534 by Leah Rodriguez CM DC PLANNING: [facility] AGREED TO PATIENT HAVING THE BIOPSY, CLINICAL PACKET AND ORDER FAXED TO JAH AT [facility]. AUTHORIZATION FOR HOSPITAL AND [facility] TRANSPORT FROM [facility] IS [id number]. [facility] DOESN'T HAVE A TECH TO DO PROCEDURE TODAY, WILL CALL CM TOMORROW TO SEE IF ADDITIONAL DOCUMENTATION OR FORMS ARE NEEDED AND TRY TO HAVE IT DONE THEN. ATTENDING MD NOTIFIED. CM WILL FOLLOW. Addendum: 06/07/22 at 0876 by Leah Rodriguez CM DC PLANNING: RAMÍREZ SPOKE WITH AUNG AT [facility], SENT COAG RESULTS. CASE REVIEWED BY DR GREENE, RADIOLOGY, HE IS RECOMMENDING A CT WITH CONTRAST. [facility] ALSO DOESN'T HAVE STAFFING TO DO PROCEDURE TODAY IT REQUIRES NURSING AND OUTPATIENT SURGERY TO BE INVOLVED. ATTENDING MD'S PHONE NUMBER GIVEN TO [facility] SO THE RADIOLOGIST CAN SPEAK WITH THE ATTENDING MD REGARDING RECOMMENDATIONS. RAMÍREZ WILL FOLLOW. Addendum: 06/07/22 at 1140 by Leah Rodriguez CM DC PLANNING: RAMÍREZ SPOKE WITH THE [facility] SUPERVISOR MILES WHO STATES THAT DANAE IS FOLLOWING UP ON REQUEST. RAMÍREZ LEFT VM ASKING FOR CLARIFICATION OF PROGRESS TOWARD GETTING PROCEDURE DONE AND ALSO TO AGAIN ASK THAT THE RADIOLOGIST CALL THE ATTENDING/ORDERING MD. RAMÍREZ WILL FOLLOW. Addendum: 06/07/22 at 1556 by Leah Rodriguez CM DC PLANNING: RAMÍREZ SPOKE WITH THE PATIENT AT BEDSIDE TO UPDATE HIM ON THE PROGRESS OF ARRANGEMENTS, PATIENT WAS YELLING BUT ULTIMATELY CALMED DOWN AND SPOKE WITH RAMÍREZ. DISCUSSED ACTIVITY LEVEL AT [facility], HE AMBULATES USING A CANE OR FWW AND CAN GO FAR THE PARKING LOT. HE STATES THAT HE TRIES TO GET UP AND OUT OF HIS ROOM DAILY TO WALK, PLAY POOL OR ENGAGE IN OTHER ACTIVITIES. THE PATIENT HAS BEEN AT [facility] FOR THREE YEARS AND WILL RETURN THERE WHEN HE'S DC'D FROM THE HOSPITAL. THE [facility] RADIOLOGIST SPOKE WITH DR ZAPATA, CT LIVER WITH CONTRAST ORDERED. RMAÍREZ SPOKE WITH MIKE AT [facility], SHE ASKED THAT CT RESULTS BE FAXED ONCE STUDY IS DONE, RAMÍREZ WILL SPEAK WITH HER IN THE MORNING TO CONFIRM BX SCHEDULE AND ARRANGE TRANSPORT. RAMÍREZ ALSO SPOKE WITH MANISH IN RADIOLOGY HERE, SHE WILL FOLLOW UP WITH NURSING REGARDING HIS IV ACCESS AND CONSENT, CM ENDORSED THAT CT RESULTS NEED TO BE FAXED TO [facility]. RAMÍREZ WILL FOLLOW. Addendum: 06/08/22 at 0835 by Leah Rodriguez CM DC PLANNING: RAMÍREZ SPOKE WITH THE CREDIT VERIFICATION CLERK OMAR AT [facility] REGARDING LIVER BX, AUTH NUMBER FROM INSURANCE GIVEN TO HIM. HE STATES THAT THE PERSON WHO SCHEDULES THE BX IS NOT IN UNTIL 0900 AND HE DOESN'T HAVE ANY INFORMATION OR UPDATES ON THE PROCEDURE. HE WILL CALL CM ONCE HE DOES, RAMÍREZ WILL FOLLOW. Addendum: 06/08/22 at 0925 by Leah Rodriguez CM DC PLANNING: PATIENT WILL BE PICKED UP AROUND 9:55 BY [facility] ([phone]) FOR TRANSPORT TO [facility], RETURN TRIP SET UP ON WILL CALL. PATIENTS NURSE GAYATRI DUNLAP, RAMÍREZ ALSO SPOKE WITH MIKE IN RADIOLOGY AT [facility] AND CREDIT VERIFICATION CLERK [facility]. RAMÍREZ WILL FOLLOW. Addendum: 06/08/22 at 1026 by Leah Rodriguez CM DC PLANNING: [facility] RUNNING LATE, WILL GIS ADMINISTRATOR PATIENT AROUND 10:45, CREDIT VERIFICATION CLERK OMAR AT [facility] MADE AWARE, HE WILL INFORM CT DEPT. PATIENTS NURSE UPDATED ON TIME, RAMÍREZ WILL FOLLOW. Addendum: 06/08/22 at 1201 by Leah Rodriguez CM DC PLANNING: ANOTHER CALL TO [facility], THEY STATED THEY WOULD GIS ADMINISTRATOR THE PATIENT AROUND NOON. RAMÍREZ THEN RECEIVED A CALL FROM KINA AT [facility], PROCEDURE IS CANCELLED, TENTATIVE RESCHEDULE TOMORROW AT 10:30 AM, KINA WILL CALL RAMÍREZ TO CONFIRM. RAMÍREZ THEN SPOKE WITH THE CREDIT VERIFICATION CLERK OMAR TO [facility] EARLY ARRIVAL AND STAFFING FOR OP SURGERY WHILE PATIENT WAITS FOR PROCEDURE, AGREED TO HAVE PATIENT ARRIVE AT 0800 AT OP SURGERY TO AVOID TRANSPORT DELAYS. RAMÍREZ INFORMED PATIENTS NURSE AND DR ZAPATA SO DIET CAN BE RESUMED, ALSO SPOKE WITH OP SURGERY AT [facility] TO ENDORSE PLAN. TRANSPORT WITH [facility] ARRANGED, GIS ADMINISTRATOR TIME [phone] TOMORROW, RETURN TRIP ON WILL CALL. RAMÍREZ WILL FOLLOW. Addendum: 06/10/22 at 1052 by Leah Rodriguez CM DC PLANNING: PATIENT IS S/P LIVER BX, PLAN TO DC TODAY PER ATTENDING MD. RAMÍREZ SPOKE WITH PATEL AT [facility] TO ENDORSE DC BACK TO FACILITY TODAY, SHE WILL SEND A VAN FOR GIS ADMINISTRATOR AT 1300. PATIENT'S NURSE AWARE OF PLAN. RAMÍREZ WILL FOLLOW. Addendum: 06/10/22 at 1201 by Leah Rodriguez CM DC PLANNING: RAMÍREZ SPOKE WITH PATIENT AT BEDSIDE TO ENDORSE DC BACK TO [facility] AND GIS ADMINISTRATOR TIME OF 1300. RAMÍREZ WILL FOLLOW.
--- NOTE | 2022-06-06 15:16 | NUR ---
PHYSICAL THERAPY CO-SIGN The Physical Therapy Progress Notes documented by Meteorology Professor have been reviewed. Reviewed/Co-Signed by: Niecy Bhatia Documentation Done by: VICKEY BULL PTA Addendum: 06/06/22 at 1516 by Niecy Bhatia PT Amended: Links added.
[2022-06-06 16:00] VITALS: BP 109/40
--- NOTE | 2022-06-06 19:11 | NUR ---
ENDORSED PT TO NIGHTSHIFT NURSE TRUDY. PT IN STABLE CONDITION.
--- NOTE | 2022-06-06 19:20 | NUR ---
RECEIVED BEDSIDE REPORT FROM DAY SHIFT RN FOR CONTINUITY OF CARE. PT IS AWAKE ON RA. PT HAS RIGHT FOREARM 22 GAUGE WITH NS 70 CC/HR. PT IS TO BE NPO MIDNIGHT. CALL LIGHT WITHIN REACH. ALL SAFETY MEASURES TAKEN. WILL CONTINUE TO MONITOR THE PT.
--- NOTE | 2022-06-06 19:50 | NUR ---
PT REFUSED VITAL SIGNS. STATED HE IS ALIVE.
--- NOTE | 2022-06-06 20:00 | NUR ---
COIN DEALER TOLD ME THE PT WANTED TO SPEAK TO THE PSYCHIATRIC ORDERLY. WENT TO CHECK IN ON PT. PT REFUSED TO SPEAK TO ANY RN OR CHARGE NURSE AND ONLY WANTS TO SPEAK TO PSYCHIATRIC ORDERLY. PT REFUSES TO SPEAK ABOUT HIS CONCERNS AND WILL ONLY SPEAK TO PSYCHIATRIC ORDERLY. PT WAS BECOMING AGITATED ON ASKING QUESTIONS. CALLED PSYCHIATRIC ORDERLY AND MADE AWARE. WILL CONTINUE TO MONITOR THE PT.
[2022-06-06] MEDS: INSULIN LISPRO SLIDING SCALE 100 UNITS/ML VIAL SUBQ PRN (20:51)
[2022-06-06] MEDS: INSULIN LANTUS 100 UNITS/ML 10 ML VIAL SUBQ SCH (20:52)
--- NOTE | 2022-06-07 02:01 | NUR ---
PT OBSERVED. PT IS SLEEPING COMFORTABLY IN BED WITHOUT ANY DISTRESS. VISIBLE CHEST RISE AND FALL. CALL LIGHT WITHIN REACH. ALL SAFETY MEASURES TAKEN. WILL CONTINUE TO MONITOR THE PT.
--- NOTE | 2022-06-07 04:55 | NUR ---
NEW IVF CHANGED. PT DENIES ANY PAIN AND HAS NO COMPLAINS AT THIS TIME. PT IS IN A CALMED MOOD. WILL CONTINUE TO MONITOR THE PT.
[2022-06-07] MEDS: NACL 0.9% 2,000 ML IV SCH (06:00)
[2022-06-07] MEDS: LEVOTHYROXINE 0.05 MG TAB PO SCH (06:09)
--- NOTE | 2022-06-07 06:21 | NUR ---
SCHEDULE MED GIVEN. NO ADVERSE REACTION NOTED. WILL CONTINUE TO MONITOR THE PT.
[2022-06-07] MEDS: BLOOD GLUCOSE MONITORING 1 DEV DEV FS SCH ×4 (06:37→21:38)
[2022-06-07 07:09] LABS: BASOPHILS % (AUTO) 0.3 % (0.0-2.0); EOSINOPHILS # (AUTO) 0.2 K/uL (0-0.4); EOSINOPHILS % (AUTO) 2.2 % (0.0-4.0); HEMATOCRIT 29.6 % (36-52); HEMOGLOBIN 9.6 g/dL (12.0-18.0); LYMPHOCYTES # (AUTO) 3.3 K/uL (2.0-11.5); LYMPHOCYTES % (AUTO) 32.4 % (20.5-51.1); MEAN CORPUSCULAR HEMOGLOBIN 29 pg (27-31); MEAN CORPUSCULAR HGB CONC 33 g/dL (33-37); MEAN CORPUSCULAR VOLUME 89.4 fL (80-94); MONOCYTES # (AUTO) 0.5 K/uL (0.8-1.0); MONOCYTES % (AUTO) 5.2 % (1.7-9.3); NEUTROPHILS # (AUTO) 6.1 K/uL (1.8-7.7); NEUTROPHILS % (AUTO) 59.9 % (42.2-75.2); PLATELET COUNT (AUTO) 156 K/uL (140-450); RED BLOOD CELL COUNT(AUTO) 3.31 MIL/uL (4.20-6.10); RED CELL DISTRIBUTION WIDTH 13.7 % (11.6-13.7); WHITE BLOOD COUNT (AUTO) 10.2 K/uL (4.8-10.8)
[2022-06-07 07:25] LABS: ANION GAP 11.2 (8-16); CARBON DIOXIDE 26.1 mmol/L (21-32); CHLORIDE 105 mmol/L (98-107); CREATININE 1.5 mg/dL (0.6-1.3); GLUCOSE 120 mg/dL (74-106); POTASSIUM 4.3 mmol/L (3.5-5.1); SODIUM SERUM 138 mmol/L (136-145); UREA NITROGEN, BLOOD 28 mg/dL (7-18)
--- NOTE | 2022-06-07 07:25 | NUR ---
ENDORSED PT TO DAY SHIFT RN FOR CONTINUITY OF CARE. PT IS STABLE.
--- NOTE | 2022-06-07 07:26 | NUR ---
RECEIVED REPORT FROM FASHION COORDINATOR NURSE FOR CONTINUITY OF CARE. PATIENT ASLEEP NO DISTRESS NOTED. PATIENT RESPIRATION EVEN AND NOT LABORED NO SHORTNESS OF BREATH ON ROOM AIR. IV SITE ON RIGHT FORE ARM TREVOR 22 RUNNING NS AT 70CC/HOUR. ALL SAFETY MEASURE IN PLACE.
--- NOTE | 2022-06-07 09:12 | NUR ---
DISCONNECT FROM IV, PATIENT AMBULATING BY PT ON STABLE CONDITION.
[2022-06-07] MEDS: ASPIRIN 81 MG TAB.CHEW PO SCH (09:34)
[2022-06-07] MEDS: MEMANTINE 10 MG TAB PO SCH (09:35)
[2022-06-07] MEDS: OSELTAMIVIR PHOSPHATE 30 MG CAP PO SCH (09:35)
[2022-06-07] MEDS: PANTOPRAZOLE 40 MG TABEC PO SCH (09:35)
[2022-06-07] MEDS: GABAPENTIN 300 MG CAP PO SCH ×2 (09:35→21:43)
[2022-06-07] MEDS: allopurinoL 100 MG TAB PO SCH ×2 (09:36→21:44)
[2022-06-07] MEDS: DOCUSATE SODIUM 100 MG GELCAP PO SCH ×2 (09:36→21:43)
--- NOTE | 2022-06-07 09:50 | NUR ---
Patient alert oriented given all due medication tolerated well.
[2022-06-07 10:00] VITALS: BP 139/71
--- NOTE | 2022-06-07 11:54 | NUR ---
SPOKE TO PAT GAS LEAK INSPECTOR HELPER REGARDING THE ARRANGEMENT FOR PROCEDURE NEED TO BE DONE AT [facility] AND SHE SAID THEY STILL WORKING ON IT. I CHECKED PATIENT BLOOD SUGAR NO COVERAGE FOR BLOOD SUGAR OF 120. I ALSO INFORM HIM OF WHAT THE GAS LEAK INSPECTOR HELPER MESSAGE.PATIENT VERBALIZED UNDERSTANDING.
--- NOTE | 2022-06-07 12:39 | NUR ---
PATIENT CALLED AND ASK TO SPEAK TO HAM MARKER ANTHONY MCKEON AND HE SPOKE TO HIM.
--- NOTE | 2022-06-07 13:00 | NUR ---
DIET CHANGE AND ORDERED FROM K[facility]. PAT EPIC APPLICATION COORDINATOR SPOKE TO HIM REGARDING THE PROCEDURE THAT NEED TO BE DONE.
--- NOTE | 2022-06-07 14:37 | NUR ---
PHYSICAL THERAPY CO-SIGN The Physical Therapy Progress Notes documented by Ocean Freight Forwarder have been reviewed. Reviewed/Co-Signed by: Niecy Bhatia Documentation Done by: VICKEY BULL PTA Addendum: 06/07/22 at 1437 by Niecy Bhatia PT Amended: Links added.
--- NOTE | 2022-06-07 14:58 | NUR ---
CT STAFF CALLED ME THAT WE NEED CONSENT FOR CT WITH CONTRAST AND AND IV LINE TREVOR 20 AND BIGGER. BUT WHEN I GO TO HIM AND EXPLAINED THE PROCEDURE AND TO GET CONSENT PATIENT GET MAD RIGHT AWAY AND SCREAMING AT ME THAT IT'S NOT GOING TO HAPPEN. I TRIED TO EXPLAINED TO HIM THE PROCEDURE AND CONSENT BUT PATIENT TOOK THE PAPER AND TEAR OFF AND THROW TO IT. I LEFT THE ROOM AND REPORT TO MY SUPERIOR.
[2022-06-07 16:00] VITALS: BP 120/69
--- NOTE | 2022-06-07 18:27 | NUR ---
DOCTOR CRESPO SEEN AND EVALUATED PATIENT. Addendum: 06/07/22 at 1828 by Jo Ann Grant LVN WRONG PATIENT
--- NOTE | 2022-06-07 18:28 | NUR ---
PATIENT WHEELED ON WHEELCHAIR BY HUB CUTTER. PATIENT ALERT ON STABLE CONDITION.
--- NOTE | 2022-06-07 19:05 | NUR ---
PATIENT BACK FROM CT ON STABLE CONDITION. HANG NEW IV FLUID AND CONNECT TO PATIENT. CALL LIGHT WITH IN EASY REACH.
--- NOTE | 2022-06-07 19:20 | NUR ---
RECEIVED ENDORSEMENT FROM DAY SHIFT NURSE FOR CONTINUITY OF PT CARE. PT IS AWAKE, ALERT AND VERBALLY RESPONSIVE. PT WILL BE ON NPO DUE TO ULTRA SOUND TOMORROW. RESPIRATION EVEN, NO SOB OR DISTRESS. SKIN INTACT AND DRY. SALINE LOCK LFA - 22 G AND LEFT AC 20 G. IV FLUID OF NORMAL SALINE INFUSING WELL AT 70 ML/HR.
[2022-06-07 20:00] VITALS: BP 114/81
[2022-06-07] MEDS: INSULIN LANTUS 100 UNITS/ML 10 ML VIAL SUBQ SCH (21:37)
[2022-06-07] MEDS: INSULIN LISPRO SLIDING SCALE 100 UNITS/ML VIAL SUBQ PRN (21:40)
--- NOTE | 2022-06-07 22:00 | NUR ---
PT IS ASLEEP. NO FACIAL GRIMACING. NO SOB OR DISTRESS. CALL LIGHT WITHIN THE REACH.
--- NOTE | 2022-06-08 02:00 | NUR ---
PT IS ASLEEP. NO SOB OR DISTRESS. CALL LIGHT WITHIN THE REACH.
[2022-06-08] MEDS: LEVOTHYROXINE 0.05 MG TAB PO SCH (06:30)
--- NOTE | 2022-06-08 06:30 | NUR ---
PT BLOOD SUGAR = 151 = 2 UNIT INSULIN HUMALOG SLIDING SCALE. PT REFUSED INSULIN HUMALOG.
[2022-06-08] MEDS: BLOOD GLUCOSE MONITORING 1 DEV DEV FS SCH ×4 (06:58→21:32)
[2022-06-08] MEDS: INSULIN LISPRO SLIDING SCALE 100 UNITS/ML VIAL SUBQ PRN ×3 (06:59→21:40)
--- NOTE | 2022-06-08 07:07 | NUR ---
PT IS ON STABLE CONDITION, ON BED. PT IS NPO. ENDORSED TO DAY SHIFT NURSE FOR CONTINUITY OF PT CARE. ALL SAFETY MEASURES IN PLACE.
--- NOTE | 2022-06-08 07:10 | NUR ---
RECEIVED REPORT FROM SCALP SPECIALIST NURSE FOR CONTINUITY OF CARE. PATIENT ASLEEP NO DISTRESS NOTED. RESPIRATION EVEN AND NOT LABORED NO SHORTNESS OF BREATH. ON ROOM AIR. IV SITE ON LEFT FORE ARM TREVOR 22 RUNNING NS AT 70 CC/HOUR. ALL SAFETY MEASURE IN PLACE.
[2022-06-08 08:00] VITALS: BP 126/70
--- NOTE | 2022-06-08 08:00 | NUR ---
Patient's Plan of Care was discussed and reviewed with DEPUTY REGISTER OF DEEDS: GAYATRI SMITH
[2022-06-08] MEDS: allopurinoL 100 MG TAB PO SCH ×2 (08:34→21:35)
[2022-06-08] MEDS: PANTOPRAZOLE 40 MG TABEC PO SCH (08:34)
[2022-06-08] MEDS: ASPIRIN 81 MG TAB.CHEW PO SCH (08:34)
[2022-06-08] MEDS: MEMANTINE 10 MG TAB PO SCH (08:35)
[2022-06-08] MEDS: GABAPENTIN 300 MG CAP PO SCH ×2 (08:35→21:34)
[2022-06-08] MEDS: DOCUSATE SODIUM 100 MG GELCAP PO SCH ×2 (08:35→21:33)
--- NOTE | 2022-06-08 08:46 | NUR ---
PATIENT ALERT NO DISTRESS NOTED GIVEN ALL HIS MEDICATION AND CONTINUE TO BE NPO FOR PROCEDURE. TALKING TO HIS DAUGHTER AT THIS TIME.
--- NOTE | 2022-06-08 10:13 | NUR ---
NURSE ELIANA FROM [facility] CALLED REGARDING THE PATIENT. GAVE REPORT FOR CONTINUITY OF CARE. AND INFORM CM THAT TRANSPORTATION IS NOT HERE YET SHE FOLLOWING IT UP.
[2022-06-08] MEDS: NACL 0.9% 2,000 ML IV SCH (10:15)
--- NOTE | 2022-06-08 11:47 | NUR ---
BLOOD SUGAR CHECKED NO COVERAGE FOR BLOOD SUGAR 133. INFORM PATIENT MESSAGE FROM CM THAT TRANSPORTATION WILL BE HERE AT [address]. [address] INFORM OF TRANSFORATION BEING LATE.
--- NOTE | 2022-06-08 12:00 | NUR ---
MIRA ELMORE CALLED AND INFORM ME THAT THE PATIENT PROCEDURE WILL NOT BE DONE TODAY AND IT WILL BE TOMORROW AT 10:30 AND WILL BE QUARANTINE OFFICER AT AM. I WENT TO PATIENT AND INFORM HIM OF THE CANCELATION. PATIENT WITH UNDERSTANDING. GIVEN SANDWICH JELLO AND PUDDING.
--- NOTE | 2022-06-08 14:00 | NUR ---
PATIENT ON BED RESTING WITH CALL LIGHT WITH IN EASY REACH.
[2022-06-08 14:19] LABS: BASOPHILS % (AUTO) 0.4 % (0.0-2.0); EOSINOPHILS # (AUTO) 0.2 K/uL (0-0.4); EOSINOPHILS % (AUTO) 2.2 % (0.0-4.0); HEMATOCRIT 29.4 % (36-52); HEMOGLOBIN 9.5 g/dL (12.0-18.0); LYMPHOCYTES # (AUTO) 2.6 K/uL (2.0-11.5); LYMPHOCYTES % (AUTO) 28.6 % (20.5-51.1); MEAN CORPUSCULAR HEMOGLOBIN 29 pg (27-31); MEAN CORPUSCULAR HGB CONC 32 g/dL (33-37); MEAN CORPUSCULAR VOLUME 89.7 fL (80-94); MONOCYTES # (AUTO) 0.4 K/uL (0.8-1.0); MONOCYTES % (AUTO) 4.5 % (1.7-9.3); NEUTROPHILS # (AUTO) 5.8 K/uL (1.8-7.7); NEUTROPHILS % (AUTO) 64.3 % (42.2-75.2); PLATELET COUNT (AUTO) 150 K/uL (140-450); RED BLOOD CELL COUNT(AUTO) 3.28 MIL/uL (4.20-6.10); RED CELL DISTRIBUTION WIDTH 14.1 % (11.6-13.7); WHITE BLOOD COUNT (AUTO) 9.1 K/uL (4.8-10.8)
[2022-06-08 14:26] LABS: ANION GAP 13.7 (8-16); CARBON DIOXIDE 23.9 mmol/L (21-32); CHLORIDE 103 mmol/L (98-107); CREATININE 1.7 mg/dL (0.6-1.3); GLUCOSE 248 mg/dL (74-106); POTASSIUM 4.6 mmol/L (3.5-5.1); SODIUM SERUM 136 mmol/L (136-145); UREA NITROGEN, BLOOD 25 mg/dL (7-18)
--- NOTE | 2022-06-08 14:45 | NUR ---
CALLED [facility] FOR PATIENT REQUEST FOR [facility]AM SANDWICH ON WHEAT BREAD, JELLO, PUDDING FOR DINNER.
[2022-06-08 16:00] VITALS: BP 162/78
--- NOTE | 2022-06-08 18:29 | NUR ---
SERVE PATIENT WITH DINNER THAT HE REQUESTING AND HE IS VERY SATISFY. REMINDED THAT HE WILL BE NPO AGAIN AFTER MIDNIGHT. CALL LIGHT WITH IN EASY REACH.
--- NOTE | 2022-06-08 19:26 | NUR ---
GAVE REPORT TO YARDAGE CONTROL CLERK NURSE FOR CONTINUITY OF CARE.
--- NOTE | 2022-06-08 19:26 | NUR ---
RECEIVED ENDORSEMENT FROM DAY SHIFT NURSE FOR CONTINUITY OF PT CARE. PT IS ON BED, AWAKE, ALERT AND VERBALLY RESPONSIVE. IV SALINE LOCK INTACT AND PATENT, IV FLUID OF NORMAL SALINE IS INFUSING WELL AT 70 ML/HR. NO REDNESS OR RASHES ON SKIN. RESPIRATORY EVEN, NO SOB OR DISTRESS NOTED.
--- NOTE | 2022-06-08 21:00 | NUR ---
PT BLOOD SUGAR = 304 = 2 UNITS OF HUMOLOG.
[2022-06-08] MEDS: INSULIN LANTUS 100 UNITS/ML 10 ML VIAL SUBQ SCH (21:37)
[2022-06-09] VITALS: BP 140/61
--- NOTE | 2022-06-09 | NUR ---
PT IS NPO AFTER MIDNIGHT FOR ULTRA SOUND AND BIOPSY PROCEDURE.
--- NOTE | 2022-06-09 01:00 | NUR ---
PT IS ON BED RELAX AND SLEEPING. NO SOB OR DISTRESS.
[2022-06-09] MEDS: LEVOTHYROXINE 0.05 MG TAB PO SCH (06:30)
[2022-06-09] MEDS: BLOOD GLUCOSE MONITORING 1 DEV DEV FS SCH ×4 (06:51→21:49)
--- NOTE | 2022-06-09 07:21 | NUR ---
PT IS ON STABLE CONDITION, AWAKE, ALERT AND VERBALLY RESPONSIVE. IV FLUID NS IS INFUSING WELL AT 70ML/HR. NO SOB OR DISTRESS. ALL SAFETY MEASURES IN PLACE. CALL LIGHT WITHIN THE REACH. ENDORSED TO DAY SHIFT NURSE FOR CONTINUITY OF PT CARE.
--- NOTE | 2022-06-09 07:22 | NUR ---
RECEIVED ENDORSEMENT FROM CLAY TEMPERER NURSE FOR CONTINUITY OF CARE. PATIENT AWAKE VERBALLY RESPONSIVE. NO DISTRESS NOTED. RESPIRATION EVEN AND NOT LABORED NO SHORTNESS OF BREATH. ON ROOM AIR . IV SITE ON LEFT AC TREVOR 20 SL AND LEFT FOREARM TREVOR 22 RUNNING 70 CC/HOUR OF NS. PATIENT NPO WAITING FOR TRANSPORTATION FOR PROCEDURE TO BE DONE AT [facility]. ALL SAFETY MEASURE IN PLACE. REPOSITION PATIENT.
[2022-06-09 07:28] LABS: BASOPHILS % (AUTO) 0.4 % (0.0-2.0); EOSINOPHILS # (AUTO) 0.2 K/uL (0-0.4); EOSINOPHILS % (AUTO) 2.2 % (0.0-4.0); HEMOGLOBIN 9.7 g/dL (12.0-18.0); LYMPHOCYTES # (AUTO) 3.6 K/uL (2.0-11.5); LYMPHOCYTES % (AUTO) 33.3 % (20.5-51.1); MEAN CORPUSCULAR HEMOGLOBIN 29 pg (27-31); MEAN CORPUSCULAR HGB CONC 32 g/dL (33-37); MEAN CORPUSCULAR VOLUME 89.7 fL (80-94); MONOCYTES # (AUTO) 0.5 K/uL (0.8-1.0); MONOCYTES % (AUTO) 4.7 % (1.7-9.3); NEUTROPHILS # (AUTO) 6.4 K/uL (1.8-7.7); NEUTROPHILS % (AUTO) 59.4 % (42.2-75.2); PLATELET COUNT (AUTO) 160 K/uL (140-450); RED BLOOD CELL COUNT(AUTO) 3.35 MIL/uL (4.20-6.10); RED CELL DISTRIBUTION WIDTH 14.5 % (11.6-13.7); WHITE BLOOD COUNT (AUTO) 10.8 K/uL (4.8-10.8)
[2022-06-09 07:33] LABS: ANION GAP 12.3 (8-16); CARBON DIOXIDE 26.1 mmol/L (21-32); CHLORIDE 103 mmol/L (98-107); CREATININE 1.4 mg/dL (0.6-1.3); GLUCOSE 105 mg/dL (74-106); POTASSIUM 4.4 mmol/L (3.5-5.1); SODIUM SERUM 137 mmol/L (136-145); UREA NITROGEN, BLOOD 23 mg/dL (7-18)
--- NOTE | 2022-06-09 07:38 | NUR ---
PATIENT ALERT AND ORIENTED ON STABLE CONDITION PROPERTY CLAIM REP BY [facility] TO GO TO [facility] FOR BIOPSY.
--- NOTE | 2022-06-09 07:44 | NUR ---
[facility] SPOKE TO JORDY AT ADMITTING GAVE REPORT FOR CONTINUITY OF CARE.
[2022-06-09] MEDS: ASPIRIN 81 MG TAB.CHEW PO SCH (09:00)
[2022-06-09] MEDS: PANTOPRAZOLE 40 MG TABEC PO SCH (09:00)
[2022-06-09] MEDS: allopurinoL 100 MG TAB PO SCH ×2 (09:00→21:45)
[2022-06-09] MEDS: GABAPENTIN 300 MG CAP PO SCH ×2 (09:00→21:44)
[2022-06-09] MEDS: DOCUSATE SODIUM 100 MG GELCAP PO SCH ×2 (09:00→21:44)
[2022-06-09] MEDS: MEMANTINE 10 MG TAB PO SCH (09:00)
--- NOTE | 2022-06-09 10:09 | NUR ---
PHYSICAL THERAPY NOTE NO TREATMENT RENDERED TODAY. PATIENT IS CURRENTLY IN [place] FOR BIOPSY PROCEDURE. WILL RESUME P.T. ON NEXT SCHEDULED DATE, IF MEDICALLY CLEARED.
[2022-06-09] MEDS: NACL 0.9% 2,000 ML IV SCH (10:15)
--- NOTE | 2022-06-09 14:28 | NUR ---
RECEIVED CALL FROM JORDY FROM [facility] FOR PATIENT CONTINUITY OF CARE EXPECTED TIME FOR PATIENT FOR BLOCK [facility]ANER IS 1500.
[2022-06-09 16:00] VITALS: BP 129/62
--- NOTE | 2022-06-09 16:00 | NUR ---
PATIENT CAME BACK FROM [facility] ON STABLE CONDITION. PATIENT WHEELED BY 2 [facility] DENIES PAIN OR ANY DISCOMFORT GIVEN ICE WATER AND CHOCOLATE PUDDING PER PATIENT REQUEST.
[2022-06-09] MEDS: INSULIN LISPRO SLIDING SCALE 100 UNITS/ML VIAL SUBQ PRN ×2 (16:21→21:47)
--- NOTE | 2022-06-09 19:18 | NUR ---
GAVE REPORT TO RN TRANSPORT NURSE FOR CONTINUITY OF CARE.
--- NOTE | 2022-06-09 19:35 | NUR ---
RECEIVED REPORT FROM AM NURSE FOR CONTINUITY OF CARE.PT IS STABLE
[2022-06-09 20:00] VITALS: BP 124/79
--- NOTE | 2022-06-09 21:30 | NUR ---
ALL MEDICATIONS GIVEN AT THIS TIME,NO ADVERSE REACTIONS NOTED
[2022-06-09] MEDS: INSULIN LANTUS 100 UNITS/ML 10 ML VIAL SUBQ SCH (21:47)
--- NOTE | 2022-06-10 02:00 | NUR ---
PATIENT ASLEEP,BREATHING EVEN AND UNLABORED,NO DISTRESS NOTED
[2022-06-10] MEDS: LEVOTHYROXINE 0.05 MG TAB PO SCH (06:20)
[2022-06-10] MEDS: BLOOD GLUCOSE MONITORING 1 DEV DEV FS SCH (06:44)
[2022-06-10] MEDS: ASPIRIN 81 MG TAB.CHEW PO SCH (08:46)
[2022-06-10] MEDS: MEMANTINE 10 MG TAB PO SCH (08:47)
[2022-06-10] MEDS: DOCUSATE SODIUM 100 MG GELCAP PO SCH (08:47)
[2022-06-10] MEDS: PANTOPRAZOLE 40 MG TABEC PO SCH (08:48)
[2022-06-10] MEDS: allopurinoL 100 MG TAB PO SCH (08:48)
[2022-06-10] MEDS: GABAPENTIN 300 MG CAP PO SCH (08:49)
[2022-06-10] MEDS: NACL 0.9% 2,000 ML IV SCH (10:08)
== END 2022-06-10 13:38 | DRG 871 ==
LOC: MED 05:33 → MTU 08:34
PROVIDERS: ADMIT Hospitalist; ATTEND Hospitalist
DX: A41.9 Sepsis, unspecified organism (principal); N17.0 Acute kidney failure with tubular necrosis; E87.1 Hypo-osmolality and hyponatremia; E03.9 Hypothyroidism, unspecified; F03.90 Unspecified dementia, unspecified severity, without behavioral disturbance, psychotic disturbance, mood disturbance, and anxiety; A05.9 Bacterial foodborne intoxication, unspecified; J10.1 Influenza due to other identified influenza virus with other respiratory manifestations; E83.42 Hypomagnesemia; M10.9 Gout, unspecified; E83.39 Other disorders of phosphorus metabolism; R16.0 Hepatomegaly, not elsewhere classified; N18.9 Chronic kidney disease, unspecified; Z20.822 Contact with and (suspected) exposure to COVID-19; I12.9 Hypertensive chronic kidney disease with stage 1 through stage 4 chronic kidney disease, or unspecified chronic kidney disease; E11.22 Type 2 diabetes mellitus with diabetic chronic kidney disease; E86.0 Dehydration; Z90.49 Acquired absence of other specified parts of digestive tract
CPT/HCPCS: 36415; 71045; 74018; 74160; 76770; 80048; 80053; 81001; 81003; 82105; 82378; 82550; 82948; 83036; 83605; 83735; 84100; 84156; 84300; 84484; 85025; 85610; 85730; 87040; 87081; 93005; 96360; 96361; 97112; 97116; 97163-GP; 97530; 99285; C1758; J1815; J3475; J7030; Q0092; Q9967

== ENCOUNTER 2023-01-08 06:19 | Inpatient (IN) | payer OTHER, MEDICAID ==
[~2023-01-08] VITALS: Ht 185.4 cm; Wt 103.4 kg
[2023-01-08 06:19] VITALS: BP 124/60
[~2023-01-08 06:19] MED LIST changes: +ALLO100T21 PO; +ASPI-1749 PO; -AZIT250T4 PO; +CHOL400C2 PO; +GABA300C PO; +INSU100S22 SUBQ; +INSU100S45 SUBQ; +LANTUS SUBQ; +MEMA5TAB PO; -NAPR-1703 PO; +NITR0.4T2 SL; +OMEP20EC11 PO; -PRED20TA5 PO; +SIMV-373 PO; +SITA100T8 PO; +SYN.05 PO
--- NOTE | 2023-01-08 06:19 | NUR ---
MADELINE FROM [facility] WITH C/O DIARRHEA SINCE MONDAY
--- NOTE | 2023-01-08 06:23 | NUR ---
Dr. Vazquez examining patient.
[2023-01-08] MEDS ORDERED: NACL 0.9% 1,000 ML IV ONE ×2 (06:30→11:45)
--- NOTE | 2023-01-08 06:30 | NUR ---
PT MADELINE BLS. TAKEN TO BED 7
--- NOTE | 2023-01-08 06:35 | NUR ---
Laurel richter in [facility] - 01/08/23 at 0635 by ALETHEA X-Ray at bedside.
--- NOTE | 2023-01-08 06:54 | NUR ---
X-Ray at bedside.
--- NOTE | 2023-01-08 07:22 | NUR ---
REPORT RECIEVED FROM SIN[facility] REYES FOR TRANSFER OF CARE.
[2023-01-08 07:44] LABS: BASOPHILS % (AUTO) 0.2 % (0.0-2.0); EOSINOPHILS # (AUTO) 0.1 K/uL (0-0.4); EOSINOPHILS % (AUTO) 0.9 % (0.0-4.0); HEMATOCRIT 28.7 % (36-52); HEMOGLOBIN 9.4 g/dL (12.0-18.0); LYMPHOCYTES # (AUTO) 2.6 K/uL (2.0-11.5); LYMPHOCYTES % (AUTO) 25.5 % (20.5-51.1); MEAN CORPUSCULAR HEMOGLOBIN 29 pg (27-31); MEAN CORPUSCULAR HGB CONC 33 g/dL (33-37); MEAN CORPUSCULAR VOLUME 89.7 fL (80-94); MONOCYTES # (AUTO) 0.6 K/uL (0.8-1.0); NEUTROPHILS # (AUTO) 6.9 K/uL (1.8-7.7); NEUTROPHILS % (AUTO) 67.4 % (42.2-75.2); PLATELET COUNT (AUTO) 158 K/uL (140-450); RED BLOOD CELL COUNT(AUTO) 3.21 MIL/uL (4.20-6.10); RED CELL DISTRIBUTION WIDTH 15.1 % (11.6-13.7); WHITE BLOOD COUNT (AUTO) 10.3 K/uL (4.8-10.8)
[2023-01-08 08:16] LABS: ALBUMIN 3.4 g/dL (3.4-5.0); ANION GAP 17.2 (8-16); ASPARTATE AMINOTRANSFERASE 44 U/L (15-37); CARBON DIOXIDE 19.5 mmol/L (21-32); CHLORIDE 103 mmol/L (98-107); GLUCOSE 163 mg/dL (74-106); POTASSIUM 4.7 mmol/L (3.5-5.1); SODIUM SERUM 135 mmol/L (136-145); TOTAL BILIRUBIN 0.4 mg/dL (0.0-1.0)
[2023-01-08 08:18] LABS: CREATININE 4.5 mg/dL (0.6-1.3); UREA NITROGEN, BLOOD 70 mg/dL (7-18)
--- NOTE | 2023-01-08 10:08 | NUR ---
Patient had a bowel movement. Patient was made clean and dry.
[2023-01-08] MEDS ORDERED: LOPERAMIDE 2 MG CAP PO PRN (11:45)
--- NOTE | 2023-01-08 12:45 | NUR ---
Called [facility] to ask for an updated med list. Awaiting fax
--- NOTE | 2023-01-08 13:20 | NUR ---
Patient was noted with loose stool. Fresh diaper was provided. Patient was made clean and dry.
--- NOTE | 2023-01-08 14:05 | NUR ---
Called [facility], spoke to Angie in regards to updated med list. States she already sent fax. Requested to refax med list.
[2023-01-08] MEDS ORDERED: MEMA5TAB41 PO (14:50)
[2023-01-08] MEDS ORDERED: SITA50TA3 PO (14:50)
[2023-01-08] MEDS ORDERED: DOXA2TAB1 PO (14:50)
[2023-01-08] MEDS ORDERED: BENA1TAB PO (14:50)
[2023-01-08] MEDS ORDERED: AMLO10TA89 PO (14:50)
[2023-01-08] MEDS ORDERED: INSU100V17 SQ (14:50)
[2023-01-08] MEDS ORDERED: ASCO500W4 PO (14:50)
--- NOTE | 2023-01-08 14:50 | NUR ---
Faxed recieved, med dax complete.
--- NOTE | 2023-01-08 15:40 | NUR ---
Patient had loose BM. Patient was made clean and dry. Fresh diaper applied.
--- NOTE | 2023-01-08 15:53 | NUR ---
PATIENT HAS BEEN SCREENED AND CATEGORIZED MODERATE NUTRITION RISK. PATIENT WILL BE SEEN WITHIN 3-5 DAYS OF ADMISSION. REVIEWED BY YEN HANKINS RD
[2023-01-08] MEDS ORDERED: AZITHROMYCIN 500 MG in DEXTROSE 5% 250 ML IV SCH (17:00)
--- NOTE | 2023-01-08 17:20 | NUR ---
Patient was offered dinner tray.
[2023-01-08 17:26] LABS: ANION GAP 14.1 (8-16); CARBON DIOXIDE 21.2 mmol/L (21-32); CHLORIDE 105 mmol/L (98-107); CREATININE 3.6 mg/dL (0.6-1.3); GLUCOSE 110 mg/dL (74-106); POTASSIUM 4.3 mmol/L (3.5-5.1); SODIUM SERUM 136 mmol/L (136-145)
[2023-01-08 17:28] LABS: UREA NITROGEN, BLOOD 72 mg/dL (7-18)
--- NOTE | 2023-01-08 17:51 | NUR ---
Attempted to perform urinary oro. Patient refused. Dr. Alejo was paged for notification of refusal.
[2023-01-08] MEDS ORDERED: SODIUM BICARBONATE 8.4% PFS 50 MEQ/50 ML SYR IVP ONE (18:49)
[2023-01-08] MEDS ORDERED: cefTRIAXone 1,000 MG VIAL ONE (19:06)
[2023-01-08 19:13] LABS: APPEARANCE,URINE CLEAR (CLEAR); BILIRUBIN,URINE NEGATIVE (NEGATIVE); BLOOD, URINE NEGATIVE (NEGATIVE); COLOR,URINE YELLOW (YELLOW); LEUKOCYTE ESTERASE ,URINE NEGATIVE (NEGATIVE); NITRITE, URINE NEGATIVE (NEGATIVE); PH,URINE 5.5 (5.0-9.0); UGLUCOSE NEGATIVE (NEGATIVE)
[2023-01-08] MEDS: SODIUM BICARBONATE 8.4% 50 MEQ in NACL 0.45% 1,000 ML IV SCH (19:20)
--- NOTE | 2023-01-08 19:26 | NUR ---
Ultrasound at bedside.
[2023-01-08] MEDS ORDERED: AZITHROMYCIN 500 MG INJ VIAL IV ONE (19:28)
--- NOTE | 2023-01-08 19:55 | NUR ---
Report given to GIOVANY Travis for transfer of care.
--- NOTE | 2023-01-08 20:45 | NUR ---
REPORT GIVEN TO ROSITA ADAIR
[2023-01-08 21:18] VITALS: BP 124/73
--- NOTE | 2023-01-08 21:18 | NUR ---
RECEIVED PT FROM ER/ ROZ AAOX4 , NID , O2 SAT WNL , W/ ONGOING 1LPM/NC , ADMISSION ASSESSMENT- WILL BE DONE , PT CAN'T WALK BUT CAN MOVE BY HIMSELF - WILL PUT ON FALL PREVENTION PROTOCOL , R/O C DIFF , BUT NO BM SINCE THIS AM , ON CONTACT PREC. FOR THE MEANTIME . WILL CONT. TO MONITOR . CALL LIGHT / URINAL WITHIN REACH , ON TELE ROULA - TOR - SR .
--- NOTE | 2023-01-08 21:20 | NUR ---
BP RE CHECK - BP164/101 , MS 102 , O2 SAT 98 % , NO S/SX OF S2 NOTED AST THIS TIME , WILL MEDICATE - FOR CLOSELY WATCH . ON S2 PREC. , BED ALARM ON , WILL CONT. TO MONITOR Addendum: 01/08/23 at 2130 by Anabel Hanna RN AT 2123 APRESOLINE 0.5 ML / SLOWLY IV PUSH GIVEN ORDERED , ON TELE MONITOR Addendum: 01/08/23 at 2133 by Anabel Hanna RN AT 2132 -FULLY AWAKE .
[2023-01-08] MEDS ORDERED: INSULIN LISPRO SLIDING SCALE 100 UNITS/ML VIAL SUBQ PRN (21:55)
--- NOTE | 2023-01-09 00:10 | NUR ---
SLEEPING , EASILY AROUSABLE BUT EASILY TO FALL BACK SLEEP , PT HAS HX OF DM , W/ ON GOING NSS W/ SODIUM BICARB AT 125 CC/HR . CALL LIGHT / URINAL WITHIN REACH . BS CHECK 125 . NO D50/.50 TIV STANDBY - DR. GARCIA INFORM Addendum: 01/09/23 at 0012 by Anabel Hanna RN PT IS CCHO DIET BUT REFUSED TO EAT , HESAID HE WANTS TO GO SLEEP
--- NOTE | 2023-01-09 01:05 | NUR ---
DOCTOR'S ORDERS REVIEWED - THERE IS DOCTOR'S ORDER FOR [facility]A CATH - BUT PER ER NURSE ( GIOVANY RAI ) THE AM NURSE ENDORSD TO HER SHE SAID THE PT IS REFUSED THAT'S WHY PT SENT HERE IN THE FLOOR W/O HERRERA CATH - DOYLE RIOS Addendum: 01/09/23 at 0113 by Anabel Hanna RN THE WORD DOYLE RIOS IN THE ABOVE NURSE'S NOTE IS AN ERROR ENTRY , INSTEAD OF WILL ENDORSE - ISAEL
[2023-01-09] MEDS ORDERED: SODIUM BICARBONATE 8.4% PFS 50 MEQ/50 ML SYR IVP ONE (03:35)
[2023-01-09] MEDS ORDERED: SODIUM BICARBONATE 8.4% 50 MEQ/50 ML VIAL ONE (03:37)
[2023-01-09 04:00] VITALS: BP 122/70
[2023-01-09] MEDS: SODIUM BICARBONATE 8.4% 50 MEQ in NACL 0.45% 1,000 ML IV SCH ×3 (04:13→17:47)
[2023-01-09 05:15] LABS: APPEARANCE,URINE CLEAR (CLEAR); BILIRUBIN,URINE NEGATIVE (NEGATIVE); BLOOD, URINE NEGATIVE (NEGATIVE); COLOR,URINE YELLOW (YELLOW); LEUKOCYTE ESTERASE ,URINE NEGATIVE (NEGATIVE); NITRITE, URINE NEGATIVE (NEGATIVE); UGLUCOSE NEGATIVE (NEGATIVE)
[2023-01-09 06:28] LABS: BASOPHILS % (AUTO) 0.2 % (0.0-2.0); EOSINOPHILS # (AUTO) 0.2 K/uL (0-0.4); EOSINOPHILS % (AUTO) 2.5 % (0.0-4.0); HEMATOCRIT 28.6 % (36-52); HEMOGLOBIN 9.3 g/dL (12.0-18.0); LYMPHOCYTES # (AUTO) 2.7 K/uL (2.0-11.5); LYMPHOCYTES % (AUTO) 34.5 % (20.5-51.1); MEAN CORPUSCULAR HEMOGLOBIN 29 pg (27-31); MEAN CORPUSCULAR HGB CONC 32 g/dL (33-37); MEAN CORPUSCULAR VOLUME 90.7 fL (80-94); MONOCYTES # (AUTO) 0.6 K/uL (0.8-1.0); MONOCYTES % (AUTO) 8.1 % (1.7-9.3); NEUTROPHILS # (AUTO) 4.4 K/uL (1.8-7.7); NEUTROPHILS % (AUTO) 54.7 % (42.2-75.2); PLATELET COUNT (AUTO) 154 K/uL (140-450); RED BLOOD CELL COUNT(AUTO) 3.16 MIL/uL (4.20-6.10); RED CELL DISTRIBUTION WIDTH 14.8 % (11.6-13.7)
[2023-01-09] MEDS: LEVOTHYROXINE 0.05 MG TAB PO SCH (06:36)
--- NOTE | 2023-01-09 06:36 | NUR ---
BS 88 - PROVIDE SNACK . NO COMPLAINT MADE , CALL LIGHT WITHIN REACH
[2023-01-09 06:52] LABS: ALBUMIN 3.6 g/dL (3.4-5.0); ANION GAP 13.1 (8-16); ASPARTATE AMINOTRANSFERASE 47 U/L (15-37); CHLORIDE 105 mmol/L (98-107); CREATININE 2.9 mg/dL (0.6-1.3); GLUCOSE 91 mg/dL (74-106); POTASSIUM 4.1 mmol/L (3.5-5.1); SODIUM SERUM 137 mmol/L (136-145); TOTAL BILIRUBIN 0.6 mg/dL (0.0-1.0)
[2023-01-09 07:01] LABS: UREA NITROGEN, BLOOD 65 mg/dL (7-18)
--- NOTE | 2023-01-09 07:10 | NUR ---
RELAYED TO DR. PALMER THE LATEST BUN 65 - WILL ENDORSE TO GIOVANY YOUNG TO FF UP IF THERE IS FURTHER ORDERS FROM DR. PALMER . ENDORSED TO HECTOR THE LATEST BS OF PT IS 88 - I SENT MSG TO DR. RADHA QUIROGA NO BS MONITORING ORDER AND NO STANDBY D - I ENDORSED TO GIOVANY YOUNG TO FF UP THIS MATTER TO , HECTOR ADAIR VERBALIZES UNDERSTANDING . PT IS AAOX4 AT THIS TIME . Addendum: 01/09/23 at 0748 by Anabel Hanna RN REFUSED HERRERA CATH INSERTION DR. PALMER INFORMED
--- NOTE | 2023-01-09 07:16 | NUR ---
receive the patient from night auditor rn in rm 114 aox4 admitting diagnosis of acute kidney injury . will continue to monitor
[2023-01-09] MEDS: amLODIPine 5 MG TAB PO SCH (08:50)
[2023-01-09] MEDS: allopurinoL 100 MG TAB PO SCH ×2 (08:50→20:43)
[2023-01-09] MEDS: MEMANTINE 10 MG TAB PO SCH ×2 (08:51→20:43)
[2023-01-09] MEDS: DOXAZOSIN 2 MG TAB PO SCH (08:51)
--- NOTE | 2023-01-09 11:30 | NUR ---
DC PLANNING ASSESSMENT COMPLETE PLEASE REFER TO ASSESSMENT FOR DETAILS TENTATIVE DC PLAN IS FOR PT TO RETURN TO MR, WHEN MEDICALLY STABLE. Addendum: 01/10/23 at 0909 by Darrius POLANCO Amended: Links added.
[2023-01-09 16:00] VITALS: BP 124/69
--- NOTE | 2023-01-09 18:25 | NUR ---
will endorse to slot shift manager rn for computed tomography of the abdomen
--- NOTE | 2023-01-09 19:54 | NUR ---
PATIENT AAOX4 WELL RESTED IN BED. NO SOB NOTED ON ROOM AIR. NO COMPLAINTS OF PAIN AT THIS TIME. IVF I/2 NS WITH SODIUM BICARBONATE 50 MEQ 125 ML/HR INFUSING WELL. CALL LIGHT WITHIN REACH. SAFETY MEASURES IN PLACE. PATIENT IS AMBULATORY.
[2023-01-09 20:00] VITALS: BP 151/83
[2023-01-09] MEDS: metroNIDAZOLE 500 MG/NS PREMIX 100 ML IV SCH (20:42)
--- NOTE | 2023-01-09 20:42 | NUR ---
ALL SCHEDULED MEDICATIONS DUE ADMINISTERED.
[2023-01-09] MEDS ORDERED: SIMVASTATIN 40 MG TAB PO SCH (21:00)
[2023-01-10] VITALS: BP 129/58
[2023-01-10] MEDS: SODIUM BICARBONATE 8.4% 50 MEQ in NACL 0.45% 1,000 ML IV SCH ×2 (03:02→08:34)
[2023-01-10 04:00] VITALS: BP 122/49
[2023-01-10] MEDS: metroNIDAZOLE 500 MG/NS PREMIX 100 ML IV SCH ×2 (05:50→11:54)
[2023-01-10] MEDS: LEVOTHYROXINE 0.05 MG TAB PO SCH (05:50)
--- NOTE | 2023-01-10 06:35 | NUR ---
PATIENT REFUSED BLOOD SUGAR CHECK.
--- NOTE | 2023-01-10 07:04 | NUR ---
receive the patient from the rn shift mgr rn in rm 114 aox4 admitting diagnosis of acute kidney injury due to diarrhea. will continue to monitor
--- NOTE | 2023-01-10 07:29 | NUR ---
GAVE REPORT TO AM NURSE FOR CONTINUITY OF CARE. PATIENT REFUSED BLOOD DRAW AT 0530.
[2023-01-10] MEDS: MEMANTINE 10 MG TAB PO SCH (08:32)
[2023-01-10] MEDS: allopurinoL 100 MG TAB PO SCH (08:32)
[2023-01-10] MEDS: DOXAZOSIN 2 MG TAB PO SCH (08:32)
[2023-01-10] MEDS: amLODIPine 5 MG TAB PO SCH (08:33)
[2023-01-10] MEDS ORDERED: LACT1CAP81 PO (10:28)
[2023-01-10] MEDS ORDERED: METR-520 PO (10:28)
--- NOTE | 2023-01-10 16:00 | NUR ---
discharge the patient [facility] . no comolain of pain at this time . no sign and symptoms of respiratory distress . in a stable condition . brought to the lobby to a waiting uber
== END 2023-01-10 15:25 | disposition home or self-care (01) | DRG 177 ==
LOC: MED 06:19 → MTU 11:50
PROVIDERS: ADMIT Family Medicine; ATTEND Family Medicine
DX: J69.0 Pneumonitis due to inhalation of food and vomit (principal); N17.0 Acute kidney failure with tubular necrosis; A08.4 Viral intestinal infection, unspecified; E86.0 Dehydration; I12.9 Hypertensive chronic kidney disease with stage 1 through stage 4 chronic kidney disease, or unspecified chronic kidney disease; E11.22 Type 2 diabetes mellitus with diabetic chronic kidney disease; N18.9 Chronic kidney disease, unspecified; Z20.822 Contact with and (suspected) exposure to COVID-19; D63.1 Anemia in chronic kidney disease; E83.51 Hypocalcemia; E03.9 Hypothyroidism, unspecified; Z79.4 Long term (current) use of insulin; Z79.82 Long term (current) use of aspirin
CPT/HCPCS: 36415; 71045; 74150; 76770; 80048; 80053; 81003; 82550; 82553; 82948; 83036; 83605; 83735; 83874; 83880; 84484; 85025; 87040; 87081; 87086; 93005; 96365; 96367; 97116; 97163-GP; 99291; 99292; J0456; J0696; J3490; J7060; Q0092

== ENCOUNTER 2023-11-08 06:20 | Inpatient (IN) | payer OTHER, MEDICAID ==
[~2023-11-08] VITALS: Ht 185.4 cm; Wt 89.8 kg
[2023-11-08] VITALS (13 sets, daily range): BP systolic 98–152; BP diastolic 50–104; PULSE 72–101; RESP 18–28; TEMP 97.6–98; O2SAT 96–100
[~2023-11-08 06:20] MED LIST changes: -ALBU0.0912 IH; +AMLO10TA89 PO; +ASCO500W4 PO; +BENA1TAB PO; -CHOL400C2 PO; +DOXA-37 PO; -INSU100S22 SUBQ; -INSU100S45 SUBQ; +INSU100V17 SQ; +LACT1CAP81 PO; -LANTUS SUBQ; -MEMA5TAB PO; +MEMA5TAB41 PO; +METR-520 PO; -OMEP20EC11 PO; -SITA100T8 PO; +SITA50TA3 PO
[2023-11-08] MEDS ORDERED: NACL 0.9% 1,000 ML IV ONE (06:50)
[2023-11-08 07:33] LABS: BASOPHILS % (AUTO) 0.1 % (0.0-2.0); EOSINOPHILS % (AUTO) 0.4 % (0.0-4.0); HEMATOCRIT 28.9 % (36-52); HEMOGLOBIN 9.6 g/dL (12.0-18.0); LYMPHOCYTES % (AUTO) 23.5 % (20.5-51.1); MEAN CORPUSCULAR HEMOGLOBIN 31 pg (27-31); MEAN CORPUSCULAR HGB CONC 33 g/dL (33-37); MEAN CORPUSCULAR VOLUME 93.5 fL (80-94); MONOCYTES # (AUTO) 0.4 K/uL (0.8-1.0); MONOCYTES % (AUTO) 4.4 % (1.7-9.3); NEUTROPHILS # (AUTO) 6.2 K/uL (1.8-7.7); NEUTROPHILS % (AUTO) 71.6 % (42.2-75.2); PLATELET COUNT (AUTO) 219 K/uL (140-450); RED BLOOD CELL COUNT(AUTO) 3.09 MIL/uL (4.20-6.10); RED CELL DISTRIBUTION WIDTH 16.5 % (11.6-13.7); WHITE BLOOD COUNT (AUTO) 8.7 K/uL (4.8-10.8)
[2023-11-08 07:44] LABS: FLU A ANTIGEN negative (NEGATIVE); FLU B ANTIGEN NEGATIVE (NEGATIVE)
[2023-11-08 07:52] LABS: INR 0.99 (0.8-1.2); PARTIAL THROMBOPLASTIN TIME 22.5 secs (22-35.6); PROTHROMBIN TIME 10.4 secs (10.8-13.4)
[2023-11-08 07:56] LABS: ALANINE AMINOTRANSFERASE 41 U/L (12-78); ALKALINE PHOSPHATASE 176 U/L (50-136); ASPARTATE AMINOTRANSFERASE 54 U/L (15-37); BILIRUBIN,DIRECT 0.2 mg/dL (0.0-0.3); PHOSPHORUS 4.7 mg/dL (2.5-4.9)
[2023-11-08 08:03] LABS: ALBUMIN 3.4 g/dL (3.4-5.0); MAGNESIUM 1.7 mg/dL (1.8-2.4)
[2023-11-08 08:41] LABS: ANION GAP 16.2 (8-16); CARBON DIOXIDE 23.3 mmol/L (21-32); CHLORIDE 98 mmol/L (98-107); CREATININE 1.7 mg/dL (0.6-1.3); GLUCOSE 96 mg/dL (74-106); POTASSIUM 4.5 mmol/L (3.5-5.1); SODIUM SERUM 133 mmol/L (136-145); THYROID STIMULATING HORMONE 3.45 uIU/mL (0.34-3.74); TOTAL BILIRUBIN 0.5 mg/dL (0.0-1.0); TOTAL PROTEIN, SERUM 8.1 g/dL (6.4-8.2); UREA NITROGEN, BLOOD 34 mg/dL (7-18)
[2023-11-08 09:00] LABS: BLOOD GAS PCO2 33.7 mmHg (35-45); BLOOD GAS PO2 95.8 mmHg (75-100)
[2023-11-08 09:01] LABS: BLOOD GAS BASE EXCESS -1.7 mmol/L (-2.0-2.0)
[2023-11-08 09:02] LABS: BLOOD GAS O2 SAT% 97.5 % (92.0-98.5)
[2023-11-08 09:37] LABS: APPEARANCE,URINE CLEAR (CLEAR); BILIRUBIN,URINE NEGATIVE (NEGATIVE); BLOOD, URINE TRACE-I (NEGATIVE); COLOR,URINE YELLOW (YELLOW); LEUKOCYTE ESTERASE ,URINE NEGATIVE (NEGATIVE); NITRITE, URINE NEGATIVE (NEGATIVE); PROTEIN,URINE TRACE (NEGATIVE); UGLUCOSE NEGATIVE (NEGATIVE); UROBILINOGEN,URINE 0.2 EU/dL (0.2 - 1)
[2023-11-08 10:32] LABS: BACTERIA,URINE OCCASSIONAL /HPF (None Seen); RBC,URINE 0 /HPF (0-5); SQUAMOUS EPITHELIAL CELL,UR 0-3 (FEW) /LPF (0-3 (FEW)); WBC,URINE 0-5 /HPF (0-5)
[2023-11-08] MEDS: IPRATROPIUM 0.02% 0.5 MG/2.5 ML NEBU INH SCH ×4 (11:05→22:49)
[2023-11-08] MEDS: ALBUTEROL 0.083% 2.5 MG/3 ML NEBU INH SCH ×4 (11:05→22:49)
[2023-11-08] MEDS: NACL 0.9% 1,000 ML IV SCH (11:08)
[2023-11-08] MEDS ORDERED: DEXTROSE 50% 50 ML SYR IVP ONE (13:05)
[2023-11-08] MEDS ORDERED: DEXTROSE 50% 50 ML SYR IVP PRN (13:45)
[2023-11-08] MEDS ORDERED: hydrALAZINE 20 MG/ML VIAL IVP PRN (14:25)
[2023-11-08] MEDS: GABAPENTIN 100 MG CAP PO SCH (16:44)
[2023-11-08] MEDS ORDERED: MAGNESIUM OXIDE 400 MG TAB PO ONE (21:55)
[2023-11-08] MEDS ORDERED: INSULIN LISPRO SLIDING SCALE 100 UNITS/ML VIAL SUBQ PRN (21:55)
[2023-11-08] MEDS: allopurinoL 100 MG TAB PO SCH (21:59)
[2023-11-08] MEDS: DOXAZOSIN 2 MG TAB PO SCH (21:59)
[2023-11-08] MEDS ORDERED: MAGNESIUM OXIDE 400 MG TAB ONE (23:33)
[2023-11-09] VITALS (11 sets, daily range): BP systolic 125–146; BP diastolic 58–75; PULSE 76–94; RESP 16–20; TEMP 97.8–98.9; O2SAT 95–99
[2023-11-09] MEDS ORDERED: ZOLPIDEM 5 MG TAB PO PRN (02:35)
[2023-11-09] MEDS: ALBUTEROL 0.083% 2.5 MG/3 ML NEBU INH SCH ×6 (03:00→22:40)
[2023-11-09] MEDS: IPRATROPIUM 0.02% 0.5 MG/2.5 ML NEBU INH SCH ×6 (03:00→22:41)
[2023-11-09 06:12] LABS: BASOPHILS % (AUTO) 0.2 % (0.0-2.0); EOSINOPHILS # (AUTO) 0.1 K/uL (0-0.4); EOSINOPHILS % (AUTO) 1.3 % (0.0-4.0); LYMPHOCYTES # (AUTO) 2.7 K/uL (2.0-11.5); LYMPHOCYTES % (AUTO) 32.2 % (20.5-51.1); MEAN CORPUSCULAR HEMOGLOBIN 31 pg (27-31); MEAN CORPUSCULAR HGB CONC 33 g/dL (33-37); MEAN CORPUSCULAR VOLUME 92.8 fL (80-94); MONOCYTES # (AUTO) 0.5 K/uL (0.8-1.0); MONOCYTES % (AUTO) 5.9 % (1.7-9.3); NEUTROPHILS # (AUTO) 5.1 K/uL (1.8-7.7); NEUTROPHILS % (AUTO) 60.4 % (42.2-75.2); PLATELET COUNT (AUTO) 188 K/uL (140-450); RED BLOOD CELL COUNT(AUTO) 2.91 MIL/uL (4.20-6.10); RED CELL DISTRIBUTION WIDTH 15.9 % (11.6-13.7); WHITE BLOOD COUNT (AUTO) 8.4 K/uL (4.8-10.8)
[2023-11-09 06:30] LABS: ALANINE AMINOTRANSFERASE 41 U/L (12-78); ALBUMIN 2.9 g/dL (3.4-5.0); ALKALINE PHOSPHATASE 157 U/L (50-136); ANION GAP 11.5 (8-16); ASPARTATE AMINOTRANSFERASE 49 U/L (15-37); CALCIUM 8.7 mg/dL (8.5-10.1); CHLORIDE 103 mmol/L (98-107); CREATININE 1.5 mg/dL (0.6-1.3); GLUCOSE 65 mg/dL (74-106); MAGNESIUM 1.7 mg/dL (1.8-2.4); PHOSPHORUS 3.3 mg/dL (2.5-4.9); POTASSIUM 4.5 mmol/L (3.5-5.1); SODIUM SERUM 138 mmol/L (136-145); TOTAL BILIRUBIN 0.6 mg/dL (0.0-1.0); TOTAL PROTEIN, SERUM 7.2 g/dL (6.4-8.2); UREA NITROGEN, BLOOD 27 mg/dL (7-18)
[2023-11-09] MEDS: NACL 0.9% 1,000 ML IV SCH ×3 (06:51→19:45)
[2023-11-09] MEDS: LEVOTHYROXINE 0.05 MG TAB PO SCH (06:52)
[2023-11-09] MEDS: BLOOD GLUCOSE MONITORING 1 DEV DEV FS SCH ×4 (07:03→21:00)
[2023-11-09] MEDS: ASPIRIN 81 MG TAB.CHEW PO SCH (09:39)
[2023-11-09] MEDS: ATORVASTATIN 20 MG TAB PO SCH (09:40)
[2023-11-09] MEDS: GABAPENTIN 100 MG CAP PO SCH ×3 (09:41→17:58)
[2023-11-09] MEDS: amLODIPine 5 MG TAB PO SCH (09:42)
[2023-11-09] MEDS: allopurinoL 100 MG TAB PO SCH ×2 (09:42→21:52)
[2023-11-09] MEDS: DOXAZOSIN 2 MG TAB PO SCH (21:53)
[2023-11-10] MEDS: NACL 0.9% 1,000 ML IV SCH ×2 (00:20→12:50)
[2023-11-10] MEDS: ALBUTEROL 0.083% 2.5 MG/3 ML NEBU INH SCH ×3 (03:42→13:45)
[2023-11-10] MEDS: IPRATROPIUM 0.02% 0.5 MG/2.5 ML NEBU INH SCH ×3 (03:42→13:45)
[2023-11-10 03:44] VITALS: PULSE 91; RESP 16; O2SAT 97
[2023-11-10 04:00] VITALS: BP 112/66; PULSE 86; RESP 18; TEMP 97.9; O2SAT 95
[2023-11-10 06:11] LABS: ANION GAP 13.3 (8-16); CALCIUM 7.2 mg/dL (8.5-10.1); CHLORIDE 109 mmol/L (98-107); CREATININE 1.1 mg/dL (0.6-1.3); GLUCOSE 144 mg/dL (74-106); POTASSIUM 3.3 mmol/L (3.5-5.1); SODIUM SERUM 140 mmol/L (136-145); UREA NITROGEN, BLOOD 21 mg/dL (7-18)
[2023-11-10] MEDS: BLOOD GLUCOSE MONITORING 1 DEV DEV FS SCH ×2 (06:37→11:30)
[2023-11-10] MEDS: LEVOTHYROXINE 0.05 MG TAB PO SCH (06:42)
[2023-11-10] MEDS ORDERED: INSU100V17 SQ (10:00)
[2023-11-10] MEDS: ASPIRIN 81 MG TAB.CHEW PO SCH (10:45)
[2023-11-10] MEDS: GABAPENTIN 100 MG CAP PO SCH ×2 (10:46→12:34)
[2023-11-10] MEDS: amLODIPine 5 MG TAB PO SCH (10:47)
[2023-11-10] MEDS: allopurinoL 100 MG TAB PO SCH (10:47)
[2023-11-10] MEDS: ATORVASTATIN 20 MG TAB PO SCH (10:50)
[2023-11-10] MEDS ORDERED: POTASSIUM CHLORIDE 10 MEQ TABER PO PRN (12:10)
== END 2023-11-10 14:46 | DRG 917 ==
LOC: MED 06:20 → MTU 10:47 → MIC 12:11 → MTU 18:53 → MMU 11-09
PROVIDERS: ADMIT Student in an Organized Health Care Education/Training Program; ATTEND Student in an Organized Health Care Education/Training Program
DX: T38.3X1A Poisoning by insulin and oral hypoglycemic [antidiabetic] drugs, accidental (unintentional), initial encounter (principal); G93.41 Metabolic encephalopathy; J96.01 Acute respiratory failure with hypoxia; N17.0 Acute kidney failure with tubular necrosis; R65.10 Systemic inflammatory response syndrome (SIRS) of non-infectious origin without acute organ dysfunction; E11.649 Type 2 diabetes mellitus with hypoglycemia without coma; I10 Essential (primary) hypertension; E03.9 Hypothyroidism, unspecified; Z20.822 Contact with and (suspected) exposure to COVID-19; Z90.49 Acquired absence of other specified parts of digestive tract
CPT/HCPCS: 36415; 36600; 71045; 80048; 80053; 80076; 81001; 82803; 82948; 83036; 83605; 83735; 83880; 84100; 84443; 84484; 85025; 85610; 85730; 87040; 87081; 93005; 94640; 96360; 99291; 99292; J1815; J7613; J7644; Q0092

== ENCOUNTER 2024-02-27 08:24 | Inpatient (IN) | payer OTHER, MEDICAID ==
[~2024-02-27] VITALS: Ht 185.4 cm; Wt 81.6 kg
[~2024-02-27 08:24] MED LIST changes: +MEMA5TAB15 PO; -MEMA5TAB41 PO
[2024-02-27 08:32] VITALS: BP 102/52; PULSE 72; RESP 18; TEMP 98.7; O2SAT 98
[2024-02-27] MEDS: ACETAMINOPHEN EXTRA STRENGTH 500 MG TAB PO ONE (10:23)
[2024-02-27 10:36] LABS: ANION GAP 16.3 (8-16); CALCIUM 9.3 mg/dL (8.5-10.1); CARBON DIOXIDE 24.9 mmol/L (21-32); CHLORIDE 98 mmol/L (98-107); CREATININE 2.4 mg/dL (0.6-1.3); GLUCOSE 87 mg/dL (74-106); POTASSIUM 4.2 mmol/L (3.5-5.1); SODIUM SERUM 135 mmol/L (136-145)
[2024-02-27 10:43] LABS: UREA NITROGEN, BLOOD 78 mg/dL (7-18)
[2024-02-27 11:25] LABS: BASOPHILS % (AUTO) 0.4 % (0.0-2.0); EOSINOPHILS # (AUTO) 0.1 K/uL (0-0.4); EOSINOPHILS % (AUTO) 1.4 % (0.0-4.0); HEMATOCRIT 28.9 % (36-52); HEMOGLOBIN 9.4 g/dL (12.0-18.0); LYMPHOCYTES # (AUTO) 2.7 K/uL (2.0-11.5); LYMPHOCYTES % (AUTO) 26.9 % (20.5-51.1); MEAN CORPUSCULAR HEMOGLOBIN 29 pg (27-31); MEAN CORPUSCULAR HGB CONC 32 g/dL (33-37); MEAN CORPUSCULAR VOLUME 90.6 fL (80-94); MONOCYTES # (AUTO) 0.4 K/uL (0.8-1.0); MONOCYTES % (AUTO) 3.7 % (1.7-9.3); NEUTROPHILS # (AUTO) 6.8 K/uL (1.8-7.7); NEUTROPHILS % (AUTO) 67.6 % (42.2-75.2); PLATELET COUNT (AUTO) 216 K/uL (140-450); RED BLOOD CELL COUNT(AUTO) 3.19 MIL/uL (4.20-6.10); RED CELL DISTRIBUTION WIDTH 16.3 % (11.6-13.7); WHITE BLOOD COUNT (AUTO) 10.1 K/uL (4.8-10.8)
[2024-02-27] MEDS: NACL 0.9% 1,000 ML IV ONE (12:29)
[2024-02-27] MEDS ORDERED: ACETAMINOPHEN 325 MG TAB PO PRN (12:45)
[2024-02-27] MEDS ORDERED: DEXTROSE 50% 50 ML SYR IVP PRN (12:45)
[2024-02-27] MEDS ORDERED: ONDANSETRON 4 MG/2 ML VIAL IVP PRN (12:45)
[2024-02-27] MEDS ORDERED: INSULIN LISPRO SLIDING SCALE 100 UNITS/ML VIAL SUBQ PRN (12:45)
[2024-02-27] MEDS: NACL 0.9% 1,000 ML IV SCH (13:03)
[2024-02-27 14:46] LABS: APPEARANCE,URINE CLEAR (CLEAR); BILIRUBIN,URINE NEGATIVE (NEGATIVE); BLOOD, URINE NEGATIVE (NEGATIVE); COLOR,URINE YELLOW (YELLOW); LEUKOCYTE ESTERASE ,URINE NEGATIVE (NEGATIVE); NITRITE, URINE NEGATIVE (NEGATIVE); PROTEIN,URINE NEGATIVE (NEGATIVE); UGLUCOSE NEGATIVE (NEGATIVE); UROBILINOGEN,URINE 0.2 EU/dL (0.2 - 1)
[2024-02-27] MEDS: BLOOD GLUCOSE MONITORING 1 DEV DEV FS SCH (17:47)
[2024-02-27] MEDS: HYDROcodone/APAP 5/325 MG 1 TAB TAB PO PRN (19:16)
[2024-02-27 20:30] VITALS: BP 132/78; PULSE 81; PULSE 82; RESP 18; TEMP 98.1; O2SAT 98
[2024-02-27] MEDS: CRUSHER, PILL MC ONE (20:40)
[2024-02-27] MEDS: DOXAZOSIN 2 MG TAB PO SCH (20:54)
[2024-02-27] MEDS: MEMANTINE 10 MG TAB PO SCH (20:55)
[2024-02-27] MEDS: allopurinoL 100 MG TAB PO SCH (20:55)
[2024-02-27] MEDS: GABAPENTIN 300 MG CAP PO SCH (20:55)
[2024-02-27] MEDS: SIMVASTATIN 40 MG TAB PO SCH (20:57)
[2024-02-27] MEDS ORDERED: MEMANTINE HCL 5 MG PO SCH (21:00)
[2024-02-27 23:55] VITALS: PULSE 79
[2024-02-28] VITALS (7 sets, daily range): BP systolic 95–135; BP diastolic 62–82; PULSE 74–82; RESP 18; TEMP 97–98.4; O2SAT 94–98
[2024-02-28] MEDS: LEVOTHYROXINE 0.05 MG TAB PO SCH (05:47)
[2024-02-28 07:27] LABS: BASOPHILS % (AUTO) 0.2 % (0.0-2.0); EOSINOPHILS # (AUTO) 0.2 K/uL (0-0.4); EOSINOPHILS % (AUTO) 1.8 % (0.0-4.0); HEMATOCRIT 29.7 % (36-52); HEMOGLOBIN 9.7 g/dL (12.0-18.0); LYMPHOCYTES # (AUTO) 3.2 K/uL (2.0-11.5); LYMPHOCYTES % (AUTO) 35.5 % (20.5-51.1); MEAN CORPUSCULAR HEMOGLOBIN 29 pg (27-31); MEAN CORPUSCULAR HGB CONC 33 g/dL (33-37); MEAN CORPUSCULAR VOLUME 90.4 fL (80-94); MONOCYTES # (AUTO) 0.4 K/uL (0.8-1.0); NEUTROPHILS # (AUTO) 5.3 K/uL (1.8-7.7); NEUTROPHILS % (AUTO) 58.5 % (42.2-75.2); PLATELET COUNT (AUTO) 183 K/uL (140-450); RED BLOOD CELL COUNT(AUTO) 3.28 MIL/uL (4.20-6.10); RED CELL DISTRIBUTION WIDTH 16.7 % (11.6-13.7)
[2024-02-28 07:49] LABS: ANION GAP 15.5 (8-16); CALCIUM 9.1 mg/dL (8.5-10.1); CARBON DIOXIDE 23.6 mmol/L (21-32); CHLORIDE 100 mmol/L (98-107); GLUCOSE 86 mg/dL (74-106); POTASSIUM 4.1 mmol/L (3.5-5.1); SODIUM SERUM 135 mmol/L (136-145)
[2024-02-28 08:01] LABS: UREA NITROGEN, BLOOD 75 mg/dL (7-18)
[2024-02-28] MEDS: amLODIPine 5 MG TAB PO SCH (09:00)
[2024-02-28] MEDS ORDERED: NON-FORMULARY ITEM (Amlodipine Besylate (Amlodipine) 10 MG) PO SCH (09:00)
[2024-02-28] MEDS: BENAZEPRIL 20 MG TAB PO SCH (09:00)
[2024-02-28] MEDS: hydroCHLOROthiazide 25 MG TAB PO SCH (09:00)
[2024-02-28] MEDS ORDERED: ASCORBATE SODIUM PO SCH (09:00)
[2024-02-28] MEDS ORDERED: ENOXAPARIN 40 MG/0.4 ML SYR SUBQ SCH (09:00)
[2024-02-28] MEDS ORDERED: BENAZEPRIL PO SCH (09:00)
[2024-02-28] MEDS ORDERED: [UNRECOGNIZED DRUG - OTHER] PO SCH (09:00)
[2024-02-28] MEDS ORDERED: ASCORBIC ACID PO SCH (09:00)
[2024-02-28] MEDS ORDERED: HYDROCHLOROTHIAZIDE PO SCH (09:00)
[2024-02-28] MEDS: ASCORBIC ACID 500 MG TAB PO SCH (09:15)
[2024-02-28] MEDS: ENOXAPARIN 30 MG/0.3 ML SYR SUBQ SCH (09:17)
[2024-02-28 22:26] LABS: URINE TOTAL PROTEIN 0.1 mg/dL (0-12)
[2024-02-29] VITALS: BP 151/69; PULSE 79; RESP 18; TEMP 97.9; O2SAT 97
[2024-02-29 00:20] VITALS: PULSE 84
[2024-02-29 04:00] VITALS: BP 139/56; PULSE 78; PULSE 81; RESP 18; TEMP 98; O2SAT 94
[2024-02-29 07:17] LABS: ANION GAP 15.5 (8-16); CALCIUM 8.9 mg/dL (8.5-10.1); CARBON DIOXIDE 23.6 mmol/L (21-32); CHLORIDE 100 mmol/L (98-107); CREATININE 1.7 mg/dL (0.6-1.3); GLUCOSE 106 mg/dL (74-106); POTASSIUM 4.1 mmol/L (3.5-5.1); SODIUM SERUM 135 mmol/L (136-145)
[2024-02-29 07:32] LABS: UREA NITROGEN, BLOOD 62 mg/dL (7-18)
[2024-02-29 08:00] VITALS: BP 161/67; PULSE 81; PULSE 84; RESP 18; TEMP 96.7; O2SAT 96
[2024-02-29 08:18] VITALS: PULSE 84; RESP 18; O2SAT 96
[2024-02-29 12:00] VITALS: PULSE 79
== END 2024-02-29 13:15 | DRG 640 ==
LOC: MED 08:24 → MTU 12:44
PROVIDERS: ADMIT Family Medicine; ATTEND Family Medicine
DX: E86.0 Dehydration (principal); N17.0 Acute kidney failure with tubular necrosis; I95.1 Orthostatic hypotension; N18.9 Chronic kidney disease, unspecified; I12.9 Hypertensive chronic kidney disease with stage 1 through stage 4 chronic kidney disease, or unspecified chronic kidney disease; E11.22 Type 2 diabetes mellitus with diabetic chronic kidney disease; E03.9 Hypothyroidism, unspecified; E11.51 Type 2 diabetes mellitus with diabetic peripheral angiopathy without gangrene; Z79.82 Long term (current) use of aspirin; Z79.4 Long term (current) use of insulin
CPT/HCPCS: 36415; 71045; 73502; 73562; 80048; 81003; 82570; 82948; 84443; 84484; 85025; 87081; 93005; 96360; 97110; 97116; 97163-GP; 97530; 99285; J1650; J1815

== ENCOUNTER 2024-03-30 07:32 | Inpatient (IN) | payer OTHER, MEDICAID ==
[~2024-03-30] VITALS: Ht 182.9 cm; Wt 81.6 kg
[~2024-03-30 07:32] MED LIST changes: -BENA1TAB PO; -METR-520 PO
[2024-03-30 07:47] VITALS: BP_SYST 118; BP_SYST 83; BP_DIAS 35; BP_DIAS 61; PULSE 103; RESP 12; TEMP 97.6; O2SAT 97
[2024-03-30 08:43] LABS: BASOPHILS # (AUTO) 0.1 K/uL (0.00-0.22); BASOPHILS % (AUTO) 0.5 % (0.0-2.0); HEMATOCRIT 27.7 % (36-52); LYMPHOCYTES # (AUTO) 2.5 K/uL (2.0-11.5); LYMPHOCYTES % (AUTO) 16.5 % (20.5-51.1); MEAN CORPUSCULAR HEMOGLOBIN 29 pg (27-31); MEAN CORPUSCULAR HGB CONC 32 g/dL (33-37); MEAN CORPUSCULAR VOLUME 90.7 fL (80-94); MONOCYTES # (AUTO) 0.5 K/uL (0.8-1.0); MONOCYTES % (AUTO) 3.3 % (1.7-9.3); NEUTROPHILS # (AUTO) 11.9 K/uL (1.8-7.7); NEUTROPHILS % (AUTO) 79.7 % (42.2-75.2); PLATELET COUNT (AUTO) 215 K/uL (140-450); RED BLOOD CELL COUNT(AUTO) 3.06 MIL/uL (4.20-6.10)
[2024-03-30 08:55] LABS: ANION GAP 18.2 (8-16); CALCIUM 9.7 mg/dL (8.5-10.1); CARBON DIOXIDE 20.6 mmol/L (21-32); CHLORIDE 101 mmol/L (98-107); CREATININE 3.6 mg/dL (0.6-1.3); GLUCOSE 137 mg/dL (74-106); POTASSIUM 4.8 mmol/L (3.5-5.1); SODIUM SERUM 135 mmol/L (136-145)
[2024-03-30 08:58] LABS: UREA NITROGEN, BLOOD 138 mg/dL (7-18)
[2024-03-30 09:00] LABS: INR 0.84 (0.8-1.2); PARTIAL THROMBOPLASTIN TIME 20.4 secs (22-35.6); PROTHROMBIN TIME 8.9 secs (10.8-13.4)
[2024-03-30 09:05] LABS: LACTIC ACID 1.5 mmol/L (0.4-2.0)
[2024-03-30] MEDS ORDERED: CEFEPIME 1,000 MG VIAL ONE (09:32)
[2024-03-30] MEDS ORDERED: VANCOMYCIN 1,000 MG VIAL ONE (09:33)
[2024-03-30] MEDS: CEFEPIME 1,000 MG in DEXTROSE 5% 50 ML IV ONE (09:47)
[2024-03-30] MEDS: VANCOMYCIN 1,000 MG in DEXTROSE 5% 250 ML IV ONE (10:49)
[2024-03-30] MEDS: NACL 0.9% 1,000 ML IV ONE (10:50)
[2024-03-30] MEDS: ASPIRIN 325 MG TAB PO ONE (11:12)
[2024-03-30 11:28] LABS: APPEARANCE,URINE CLEAR (CLEAR); BILIRUBIN,URINE NEGATIVE (NEGATIVE); BLOOD, URINE TRACE-I (NEGATIVE); COLOR,URINE YELLOW (YELLOW); LEUKOCYTE ESTERASE ,URINE NEGATIVE (NEGATIVE); NITRITE, URINE NEGATIVE (NEGATIVE); PROTEIN,URINE TRACE (NEGATIVE); UGLUCOSE NEGATIVE (NEGATIVE); UROBILINOGEN,URINE 0.2 EU/dL (0.2 - 1)
[2024-03-30] MEDS: ONDANSETRON 4 MG/2 ML VIAL IVP ONE (11:28)
[2024-03-30 11:55] LABS: BACTERIA,URINE FEW /HPF (None Seen); SQUAMOUS EPITHELIAL CELL,UR 0-3 (FEW) /LPF (0-3 (FEW)); WBC,URINE 0-5 /HPF (0-5)
[2024-03-30] MEDS ORDERED: ONDANSETRON 4 MG/2 ML VIAL IVP PRN (11:55)
[2024-03-30] MEDS ORDERED: ACETAMINOPHEN 325 MG TAB PO PRN (11:55)
[2024-03-30] MEDS ORDERED: INSULIN LISPRO SLIDING SCALE 100 UNITS/ML VIAL SUBQ PRN (11:55)
[2024-03-30] MEDS ORDERED: PIPERACILLIN/TAZOBACTAM 3.375 GM in DEXTROSE 5% 50 ML IV SCH (13:00)
[2024-03-30] MEDS ORDERED: GABAPENTIN 300 MG CAP PO SCH ×2 (13:00→14:20)
[2024-03-30] MEDS: NACL 0.9% 1,000 ML IV SCH (13:32)
[2024-03-30] MEDS ORDERED: SODIUM BICARBONATE 8.4% PFS 50 MEQ/50 ML SYR IVP ONE (13:43)
[2024-03-30] MEDS: HYDROcodone/APAP 5/325 MG 1 TAB TAB PO PRN (13:48)
[2024-03-30] MEDS: SODIUM BICARBONATE 8.4% 50 MEQ in NACL 0.45% 1,000 ML IV SCH (14:52)
[2024-03-30] MEDS ORDERED: PIPERACILLIN/TAZOBACTAM 2.25 GM VIAL IV ONE (14:59)
[2024-03-30] MEDS: PIPERACILLIN/TAZOBACTAM 2.25 GM in DEXTROSE 5% 50 ML IV SCH (15:04)
[2024-03-30] MEDS: BLOOD GLUCOSE MONITORING 1 DEV DEV FS SCH (16:30)
[2024-03-30 19:58] VITALS: O2SAT 96
[2024-03-30 20:47] VITALS: PULSE 96; RESP 18; O2SAT 100
[2024-03-30 20:48] VITALS: PULSE 93
[2024-03-30] MEDS ORDERED: SIMVASTATIN 40 MG TAB PO SCH (21:00)
[2024-03-30] MEDS ORDERED: MEMANTINE HCL 5 MG PO SCH (21:00)
[2024-03-30] MEDS ORDERED: allopurinoL 100 MG TAB PO SCH (21:00)
[2024-03-30] MEDS: PIPERACILLIN/TAZOBACTAM 2.25 GM VIAL IV ONE ×2 (22:01)
[2024-03-30] MEDS: DEXTROSE 50% 50 ML SYR IVP PRN (22:38)
[2024-03-30] MEDS: DOXAZOSIN 2 MG TAB PO SCH (22:50)
[2024-03-30] MEDS: MEMANTINE 10 MG TAB PO SCH (22:50)
[2024-03-30] MEDS: SIMVASTATIN 20 MG TAB PO SCH (22:51)
[2024-03-30] MEDS: CRUSHER, PILL MC ONE (22:58)
[2024-03-31] VITALS: PULSE 99
[2024-03-31] MEDS: SODIUM BICARBONATE 8.4% PFS 50 MEQ/50 ML SYR IVP ONE (03:31)
[2024-03-31 04:00] VITALS: BP 128/66; PULSE 94; PULSE 96; RESP 18; TEMP 98; O2SAT 100
[2024-03-31 06:13] LABS: MEAN CORPUSCULAR HEMOGLOBIN 29 pg (27-31)
[2024-03-31 06:17] LABS: MONOCYTES # (AUTO) 0.4 K/uL (0.8-1.0)
[2024-03-31] MEDS: LEVOTHYROXINE 0.05 MG TAB PO SCH (06:30)
[2024-03-31 07:05] LABS: ANION GAP 16.4 (8-16); CALCIUM 8.8 mg/dL (8.5-10.1); CARBON DIOXIDE 19.8 mmol/L (21-32); CHLORIDE 101 mmol/L (98-107); CREATININE 3.4 mg/dL (0.6-1.3); GLUCOSE 87 mg/dL (74-106); POTASSIUM 4.2 mmol/L (3.5-5.1); SODIUM SERUM 133 mmol/L (136-145)
[2024-03-31 07:10] LABS: UREA NITROGEN, BLOOD 134 mg/dL (7-18)
[2024-03-31] MEDS: PIPERACILLIN/TAZOBACTAM 2.25 GM VIAL IV ONE (07:27)
[2024-03-31 08:00] VITALS: BP 114/58; PULSE 78; PULSE 93; PULSE 98; RESP 18; TEMP 96.3; O2SAT 96; O2SAT 98
[2024-03-31] MEDS ORDERED: NON-FORMULARY ITEM (Amlodipine Besylate (Amlodipine) 10 MG) PO SCH (09:00)
[2024-03-31] MEDS ORDERED: [UNRECOGNIZED DRUG - OTHER] PO SCH (09:00)
[2024-03-31] MEDS ORDERED: ASCORBATE SODIUM PO SCH (09:00)
[2024-03-31] MEDS ORDERED: FOLIC ACID PO SCH (09:00)
[2024-03-31] MEDS ORDERED: ASCORBIC ACID PO SCH (09:00)
[2024-03-31] MEDS: ASPIRIN 81 MG TAB.CHEW PO SCH (09:30)
[2024-03-31] MEDS: ASCORBIC ACID 500 MG TAB PO SCH (09:30)
[2024-03-31] MEDS: LACTOBACILLUS RHAMNOSUS GG 1 EACH CAP PO SCH (09:30)
[2024-03-31] MEDS: amLODIPine 5 MG TAB PO SCH (09:31)
[2024-03-31 09:42] LABS: HEMOGLOBIN 7.8 g/dL (12.0-18.0); MEAN CORPUSCULAR HGB CONC 32 g/dL (33-37)
[2024-03-31 11:06] LABS: CHLORIDE,URINE RANDOM 49 mmol/L (110-250); CREATININE,URINE RANDOM 82 mg/dL (30-125); URINE SODIUM, RANDOM 31 mmol/l (40-220)
[2024-03-31 12:00] VITALS: BP 146/57; PULSE 68; PULSE 90; RESP 18; TEMP 96.6; O2SAT 96
[2024-03-31 14:06] LABS: HEMATOCRIT 24.6 % (36-52); RED BLOOD CELL COUNT(AUTO) 2.69 MIL/uL (4.20-6.10)
[2024-03-31 14:07] LABS: BASOPHILS % (AUTO) 0.1 % (0.0-2.0); EOSINOPHILS % (AUTO) 0.3 % (0.0-4.0); LYMPHOCYTES # (AUTO) 2.1 K/uL (2.0-11.5); LYMPHOCYTES % (AUTO) 17.1 % (20.5-51.1); MEAN CORPUSCULAR VOLUME 91.4 fL (80-94); MONOCYTES % (AUTO) 3.4 % (1.7-9.3); NEUTROPHILS # (AUTO) 9.5 K/uL (1.8-7.7); NEUTROPHILS % (AUTO) 79.1 % (42.2-75.2); PLATELET COUNT (AUTO) 170 K/uL (140-450); RED CELL DISTRIBUTION WIDTH 17.5 % (11.6-13.7)
[2024-03-31 16:00] VITALS: BP 134/63; PULSE 81; PULSE 91; RESP 18; TEMP 96.7; O2SAT 97
[2024-03-31 20:00] VITALS: BP 138/72; PULSE 89; PULSE 91; RESP 19; TEMP 97.3; O2SAT 97
[2024-03-31] MEDS: METOPROLOL 25 MG TAB PO SCH (21:02)
[2024-04-01] VITALS: BP 101/56; PULSE 69; PULSE 77; RESP 18; TEMP 96.9; O2SAT 99
[2024-04-01 04:00] VITALS: BP 124/83; PULSE 77; PULSE 83; RESP 18; TEMP 96.9; O2SAT 96
[2024-04-01 05:25] LABS: BASOPHILS % (AUTO) 0.3 % (0.0-2.0); EOSINOPHILS # (AUTO) 0.1 K/uL (0-0.4); EOSINOPHILS % (AUTO) 1.1 % (0.0-4.0); HEMATOCRIT 26.2 % (36-52); HEMOGLOBIN 8.5 g/dL (12.0-18.0); LYMPHOCYTES % (AUTO) 28.6 % (20.5-51.1); MEAN CORPUSCULAR HEMOGLOBIN 29 pg (27-31); MEAN CORPUSCULAR HGB CONC 32 g/dL (33-37); MEAN CORPUSCULAR VOLUME 90.4 fL (80-94); MONOCYTES # (AUTO) 0.4 K/uL (0.8-1.0); MONOCYTES % (AUTO) 4.2 % (1.7-9.3); NEUTROPHILS # (AUTO) 6.9 K/uL (1.8-7.7); NEUTROPHILS % (AUTO) 65.8 % (42.2-75.2); PLATELET COUNT (AUTO) 188 K/uL (140-450); RED BLOOD CELL COUNT(AUTO) 2.89 MIL/uL (4.20-6.10); RED CELL DISTRIBUTION WIDTH 17.3 % (11.6-13.7); WHITE BLOOD COUNT (AUTO) 10.5 K/uL (4.8-10.8)
[2024-04-01 06:07] LABS: ANION GAP 16.3 (8-16); CALCIUM 9.1 mg/dL (8.5-10.1); CARBON DIOXIDE 22.5 mmol/L (21-32); CHLORIDE 100 mmol/L (98-107); CREATININE 2.7 mg/dL (0.6-1.3); GLUCOSE 83 mg/dL (74-106); POTASSIUM 3.8 mmol/L (3.5-5.1); SODIUM SERUM 135 mmol/L (136-145)
[2024-04-01 06:15] LABS: UREA NITROGEN, BLOOD 105 mg/dL (7-18)
[2024-04-01 08:00] VITALS: BP 116/56; PULSE 77; PULSE 83; RESP 18; TEMP 97.6; O2SAT 96; O2SAT 97
[2024-04-01] MEDS: ATORVASTATIN 20 MG TAB PO SCH (09:53)
[2024-04-01] MEDS: MEGESTROL 400 MG/10 ML UDC PO SCH (10:50)
[2024-04-01 12:00] VITALS: BP 135/68; PULSE 84; RESP 18; TEMP 96.9; O2SAT 96
[2024-04-01 18:08] VITALS: BP 135/68; PULSE 84; RESP 18; TEMP 96.9
== END 2024-04-01 19:15 | DRG 392 ==
LOC: MED 07:32 → MTU 11:54
PROVIDERS: ADMIT Student in an Organized Health Care Education/Training Program; ATTEND Student in an Organized Health Care Education/Training Program
DX: R19.09 Other intra-abdominal and pelvic swelling, mass and lump (principal); N17.9 Acute kidney failure, unspecified; N18.4 Chronic kidney disease, stage 4 (severe); I25.10 Atherosclerotic heart disease of native coronary artery without angina pectoris; M51.36 Other intervertebral disc degeneration, lumbar region; F03.90 Unspecified dementia, unspecified severity, without behavioral disturbance, psychotic disturbance, mood disturbance, and anxiety; E03.9 Hypothyroidism, unspecified; D63.1 Anemia in chronic kidney disease; R16.0 Hepatomegaly, not elsewhere classified; D72.829 Elevated white blood cell count, unspecified; E78.5 Hyperlipidemia, unspecified; E11.22 Type 2 diabetes mellitus with diabetic chronic kidney disease; I12.9 Hypertensive chronic kidney disease with stage 1 through stage 4 chronic kidney disease, or unspecified chronic kidney disease; Z79.4 Long term (current) use of insulin; Z85.05 Personal history of malignant neoplasm of liver
CPT/HCPCS: 36415; 70450; 71045; 76770; 80048; 81001; 82436; 82570; 82948; 83605; 83690; 83880; 84300; 84484; 85025; 85379; 85610; 85730; 87040; 87081; 93005; 96365; 96366; 96367; 96375; 99285; J0692; J1644; J1815; J2405; J2543; J3370; J3490; J7060; Q0092